=== PATIENT | female | born 1945 | race Caucasian/White ===

== ENCOUNTER 2018-10-25 10:21 | Observation (INO) | payer OTHER, SELFPAY ==
[2018-10-25] VITALS (7 sets, daily range): BP systolic 132–182; BP diastolic 68–96; PULSE 73–103; RESP 16–20; TEMP 36.6–36.9; O2SAT 95–99; BMI 19.4
--- NOTE | 2018-10-25 10:51 | ED_ITS ---
HPI - Extremity Injury (Lower) General Chief Complaint: Extremity Injury, Lower Stated Complaint: broken hip or crack in hip fell yesturday Time Seen by Provider: 10/25/18 10:24 Source: patient and family Mode of arrival: wheelchair Limitations: no limitations History of Present Illness HPI Narrative: 73-year-old female nonsmoker with history of hypertension presents with severe, intractable right hip pain with weight bearing or ambulation. Patient woke up in the middle the night and had a ground level mechanical fall 2 nights ago. She was seen and evaluated at the emergency department in Tuesday and had x-rays in CT, both of which were negative. Discharge instructions recommended further evaluation with MRI, the patient refused at that point time but given ongoing pain elected to come CS today. She denies any dizziness, weakness or lightheadedness. She states the fall was purely mechanical, as she was attempting to ambulate in the dark. She denies any numbness, tingling or weakness. MD complaint: hip injury Onset (ago): day(s) Type of Injury: blunt Place: home Severity: moderate Relieving factors: rest Exacerbating factors: weight bearing, movement and palpation Context: fall and direct blow Associated symptoms: unable to bear weight Other symptoms: none Related Data Home Medications Medication Instructions Recorded Confirmed TEARS ARTIFICIAL OPHTH - OPHTH PRN #0 06/22/09 (Lubritears / Tears Naturale) Allergies Allergy/AdvReac Type Severity Reaction Status Date / Time codeine Allergy Hives Verified 10/25/18 11:00 epinephrine AdvReac Agitated Verified 10/25/18 11:00 Review of Systems Constitutional Constitutional: Denies chills, Denies fatigue, Denies fever(s), Denies frequent falls, Denies lethargy and Denies weakness Eyes Eyes: Denies change in vision, Denies eye discharge, Denies irritation and Denies loss of vision ENT Ears, Nose, Mouth, and Throat: Denies change in voice, Denies dizziness, Denies neck pain, Denies sore throat and Denies throat swelling Cardiovascular Cardiovascular: Denies chest pain, Denies irregular heart rhythm, Denies lightheadedness, Denies palpitations, Denies dyspnea, Denies dyspnea on exertion and Denies orthopnea Respiratory Respiratory: Denies cough, Denies dyspnea, Denies dyspnea on exertion and Denies wheezing Gastrointestinal Gastrointestinal: Denies abdominal pain, Denies change in bowel habits, Denies diarrhea, Denies nausea and Denies vomiting Genitourinary Genitourinary: Denies hematuria, Denies flank pain, Denies urinary incontinence and Denies urinary urgency Musculoskeletal Musculoskeletal: Denies back pain, Reports limited range of motion, Denies muscle weakness, Denies neck pain, Denies numbness and Denies tingling Integumentary/Breasts Skin/Breast: Denies pruritus, Denies erythema, Denies rash and Denies wounds Neurologic Neurologic: Denies behavioral changes, Denies confusion, Denies dizziness, Denies frequent falls, Denies loss of vision, Denies numbness, Denies tingling and Denies weakness Psychiatric Psychiatric: Denies anxiety, Denies behavioral changes, Denies confusion, Denies depression, Denies homicidal ideation and Denies suicidal ideation Endocrine Endocrine: Denies fatigue, Denies flushing and Denies palpitations Hematologic/Lymphatic Hematologic/Lymphatic: Denies easy bruising Allergic/Immunologic Allergic/Immunologic: Denies urticaria, Denies throat swelling and Denies wheezing [facility] Medical History Allergic rhinitis (Acute) Hypertension (Acute) Irritable bowel syndrome (Acute) Unspecified nasal polyp (Acute) Surgical History History of appendectomy (Acute) History of cholecystectomy (Acute) History of tonsillectomy (Acute) Family History (Updated 10/25/18 @ 17:55 by Piedad Sequeira MD) Father Sick sinus syndrome Social History household members: none Smoking Status: Former smoker Family History Father Sick sinus syndrome Social History household members: none Smoking Status: Former smoker Exam Narrative Exam Narrative: GENERAL: [73] year old patient appears stated age. Well- nourished, well-developed patient, in mild distress. Obviously in significant pain, in her right hip and groin, requires multiple people to assist in ambulation from a seated position HEAD: Atraumatic. Normocephalic. EYES: Pupils equal round and reactive. Extraocular motions intact. No scleral i cterus. No injection or drainage. ENT: Nose without bleeding, purulent drainage. Throat without erythema, tonsillar hypertrophy or exudate. Airway patent. NECK: Trachea midline. Non tender CARDIOVASCULAR: Regular rate and rhythm without murmurs, gallops, or rubs. RESPIRATORY: Clear to auscultation. Breath sounds equal bilaterally. No wheezes, rales, or rhonchi. GASTROINTESTINAL: Abdomen soft, non-tender, nondistended. EXTREMITIES: No edema or joint tenderness. On palpation but significant pain in hip with ambulation BACK: Nontender without deformity or crepitance. No flank tenderness. NEURO: AOx3. SKIN: No rash or erythema of visible areas Initial Vital Signs Initial Vital Signs: Vital Signs Temperature 98.5 F 10/25/18 10:30 Pulse Rate 103 H 10/25/18 10:30 Respiratory Rate 20 10/25/18 10:30 Blood Pressure 182/96 H 10/25/18 10:30 Pulse Oximetry 97 10/25/18 10:30 Course Course Course Narrative: Records reviewed from [place], x-ray and CT both suggest no fracture noted Orders Ordered: ED Orders 10/25/18 11:20 Consult to Physical Therapy Evaluate & Treat 10/25/18 11:30 Basic Metabolic Panel Stat Complete Blood Count AUTO DIFF Stat Acetaminophen (Tylenol) 650 mg PO Q6HR PRN PRN Reason: As Needed for Fever/Mild Pain Hydrocodone Bitart/Acetaminophen (Birney 5/325) 1 tab PO Q4HR PRN PRN Reason: Pain, Moderate (4-6) Al Hydrox/Mg Hydrox/Simethicone (Maalox Plus) 30 ml PO Q6HR PRN PRN Reason: Dyspepsia Enoxaparin Sodium (Lovenox) 40 mg SUBCUT DAILY [facility] Losartan Potassium (Cozaar) 25 mg PO DAILY BELLO Magnesium Hydroxide (Milk Of Magnesia) 30 ml PO DAILY PRN PRN Reason: Constipation Ondansetron HCl (Zofran) 4 mg IV Q8HR PRN PRN Reason: Nausea And Vomiting Sennosides (Senna) 17.2 mg PO BEDTIME [facility] Vital Signs Vital signs: Vital Signs - 8 hr 10/25/18 11:30 10/25/18 12:30 Pulse Rate 98 H 92 H Respiratory Rate 16 16 Blood Pressure [Right Arm] 132/68 134/72 Pulse Oximetry 96 96 MDM - Extremity Injury (Lower) Lab Data Result diagrams: 10/25/18 11:30 10/25/18 11:30 Labs: Lab Results 10/25/18 10/25/18 Range/Units 11:30 11:30 WBC 6.5 (4.5-11.0) X10^3/uL RBC 4.36 (4.0-5.2) X10^6/uL Hgb 14.3 (12.0-16.0) g/dL Hct 41.2 (36-46) % MCV 94.5 (80-100) fL MCH 32.7 (26-34) PG MCHC 34.6 (30-36) % RDW 13.1 (11.6-14.8) % Plt Count 203 (150-400) X10^3/uL Neut % (Auto) 71.6 (50-75) % Lymph % (Auto) 18.6 L (25-40) % [place] % (Auto) 8.3 (3-14) % Eos % (Auto) 0.6 L (2-4) % Baso % (Auto) 0.9 (0-2) % Neut # (Auto) 4700 (1966-7378) /uL Lymph # (Auto) 1200 (7174-8685) /uL [place] # (Auto) 500 (0-900) /uL Eos # (Auto) 0 (0-450) /uL Baso # (Auto) 100 (0-100) /uL Sodium 137 (137-145) mmol/L Potassium 3.8 (3.4-5.1) mmol/L Chloride 97 L (98-107) mmol/L Carbon Dioxide 28 (22-32) mmol/L BUN 11 (7-17) mg/dL Creatinine 0.50 L (0.52-1.04) mg/dL Estimated GFR > 60.0 (>60) mL/min BUN/Creatinine Ratio 22.0 (6-22) Glucose 159 H (80-110) mg/dL Calcium 9.8 (8.4-10.2) mg/dL MDM Narrative Medical decision making narrative: Patient with mechanical, ground level fall and unremarkable images. Patient is in significant pain with any ambulation, physical therapy consultation obtained and noted in chart. They sure the op inion the patient is unable, and unsafe to go home at this point time. Patient has had questions answered to her apparent satisfaction and understands, and agrees with need for hospitalization for further evaluation and stabilization Discharge Plan Departure Patient Disposition: Admitted as Observation Clinical Impression: Groin pain Discharge Date/Time: 10/25/18 16:30 Admit Date/Time: 10/25/18 15:08 Admit Provider: Piedad Sequeira
[2018-10-25 11:46] LABS: Add Manual Diff / Slide Review NO; Basophils Absolute Auto 100 /uL (0-100); Basophils Percent Auto 0.9 % (0-2); Eosinophils Absolute Auto 0 /uL (0-450); Eosinophils Percent Auto 0.6 % (2-4); Hematocrit 41.2 % (36-46); Hemoglobin 14.3 g/dL (12.0-16.0); Lymphocytes Absolute Auto 1200 /uL (1100-4500); Lymphocytes Percent Auto 18.6 % (25-40); Mean Corpuscular HGB Conc 34.6 % (30-36); Mean Corpuscular Hemoglobin 32.7 PG (26-34); Mean Corpuscular Volume 94.5 fL (80-100); Monocytes Absolute Auto 500 /uL (0-900); Monocytes Percent Auto 8.3 % (3-14); Neutrophils Absolute Auto 4700 /uL (1500-7000); Neutrophils Percent Auto 71.6 % (50-75); Platelet Count 203 X10^3/uL (150-400); Red Blood Cell Count 4.36 X10^6/uL (4.0-5.2); Red Cell Distribution Width 13.1 % (11.6-14.8); White Blood Cell Count 6.5 X10^3/uL (4.5-11.0)
[2018-10-25 11:57] LABS: Blood Urea Nitrogen 11 mg/dL (7-17); Calcium 9.8 mg/dL (8.4-10.2); Carbon Dioxide 28 mmol/L (22-32); Chloride 97 mmol/L (98-107); Estimated Glomerular Filt Rate > 60.0 mL/min (>60); Glucose 159 mg/dL (80-110); HEMOLYSIS < 15 (0-50); Potassium 3.8 mmol/L (3.4-5.1); Sodium 137 mmol/L (137-145)
--- NOTE | 2018-10-25 15:15 | PT.IIE ---
Surgical History (Last Updated 10/25/18 @ 17:55 by Piedad Sequeira MD) History of appendectomy (Acute) History of cholecystectomy (Acute) History of tonsillectomy (Acute) Medical History (Last Updated 10/25/18 @ 17:55 by Piedad Sequeira MD) Allergic rhinitis (Acute) Hypertension (Acute) Irritable bowel syndrome (Acute) Unspecified nasal polyp (Acute) Physical Therapy Inpatient Evaluation/Re-Eval M1 PT/OT-IP Prior Functional Status Start: 10/25/18 17:31 Freq: NEEDED Status: Active Protocol: Document 10/25/18 15:15 AB (Rec: 10/25/18 18:00 AB [id number]) Medical Review Prior Functional Status Medical History Reviewed Yes Communication able to make needs known Mobility and Gait pt stated that she is modified independent with all mobilities and ambulation without AD but occasionally uses a SPC or a walking stick depending on her BPPV; stated that she also has a grocery trolley that she uses when needed for support Prior Functional Level (Other details) pt stated that she tripped and fell landing on her R hip during the night. initially was able to get back to bed but has difficulty getting up in the morning and has to call EMS and pt went to [facility]. stated that CT showed negative fracture but pt continues to have significant pain and [facility] stated to go to [facility] for MRI. Social History Household Members none Living Arrangements Apartment/Condo Number of Floors (Floors) One Floor Number of Stairs To Enter/Railing? 3 steps to enter with L rail ascending stated that she has a slope up to get into her condo pt lives at [facility] Home Environment High Toilet,Walk in Shower Home Equipment Bedside Commode,Shower Seat with Backrest,Hand Held Shower Employment Status Retired M2 PT-IP Current Condition Start: 10/25/18 17:31 Freq: NEEDED Status: Active Protocol: Document 10/25/18 15:15 AB (Rec: 10/25/18 18:00 AB [id number]) Physical Therapy Current Condition Current Condition Evaluation Date 10/25/18 Treatment Diagnosis R hip pain; difficulty in walking Onset Date 10/25/18 M3 PT-IP Subjective Start: 10/25/18 17:31 Freq: NEEDED Status: Active Protocol: Document 10/25/18 15:15 AB (Rec: 10/25/18 18:00 AB [id number]) Subjective Physical Therapy Visit Type Type Initial Evaluation Visit Start Time 15:15 Visit Stop Time 15:46 Total Visit Minutes 31 Number of BELLY PACKER Visits 0 Physical Therapy Visit Comments Patient Comments pt agreeable to do PT Therapy Pain Assessment Pain When Pain Assessed During Mobility Pain Present Pain Present Pain Reported Location Right Groin Intensity 6 Scale Used increases with increase weight bearing Pain Management Techniques Apply Cold,Modification of Treatment,Timing of Activity with Medications M4 PT-IP Mobility and Gait Start: 10/25/18 17:31 Freq: NEEDED Status: Active Protocol: Document 10/25/18 15:15 AB (Rec: 10/25/18 18:00 AB [id number]) PT-Bed Mobility Assessment Supine to Sit Supine to Sit Standby Assistance Sit to Supine Sit to Supine Standby Assistance Scooting Scooting to Edge of Bed Standby Assistance Scooting Up and Down in Bed Standby Assistance PT-Transfer Assessment Sit to and From Stand Sit to and from Stand Moderate Assistance,1 Person Assistance,Use of Upper Extremities Equipment Transfer Assistive Device Gait Belt,Front Wheeled Walker Orthotic/Prosthetic Devices or Brace: No Comments Mobility Comments pt stated that she does not have pain when she is not moving but has increase in pain when weight bearing. pt completed supine to sit SBA. completed sit to stand mod A and cues. pt is not using RLE for weight bearing. pt tried to put some weight and has ~ 2/10 pain and was able to ambulated in room ~ 8 ft using FWW mod A and cues with increase UE weight bearing and not putting much weight on RLE. pt attempted to put more weight and unable to tolerate with slight R knee buckling requiring mod A for support. pt has increase guarding during standing and ambulation . pt went back to bed. positioned in bed. call light and table within reach. informed nurse regarding pt's concerns and level of assistance. Gait Assessment Gait Gait Assistance Required: Moderate Assistance Distance (Feet) 8 Able to Maintain Weight Bearing Status Yes During Gait Assistive Devices Assistive Device Gait Belt,Front Wheeled Walker Orthotic/Prosthetic Devices or Brace: No Gait Deviations General Gait Pattern Antalgic,Decreased Stride Length,Decreased Feet Clearance,Step-to Gait Factors Limiting Gait Function Factors Limiting Gait Function Decreased Strength,Limited Range of Motion,Pain,Poor Balance Comments Gait Comments please refer to mobility section for details PT-Balance Assessment Sitting Balance and Reactions Static Sitting Balance Ability Good Dynamic Sitting Balance Ability Good Standing Balance and Reactions Static Standing Balance Ability Fair Dynamic Standing Balance Ability Poor Device Used FWW M5 PT-IP Objective Assessments Start: 10/25/18 17:31 Freq: NEEDED Status: Active Protocol: Document 10/25/18 15:15 AB (Rec: 10/25/18 18:00 AB [id number]) Orientation Orientation/Cognition Level of Alertness Alert Orientation Name,Place,Situation Language Function Ability No Deficits Noted Safety Awareness Understands Safety Issues Memory Description No Deficits Noted Gross Range of Motion Lower Extremity ROM Assessment Within Functional Limits Strength Lower Extremity Strength Assessment Right Impaired Hip 3-/5 with pain limiting movement Knee 3-/5 with pain limiting movement Coordination Assessment Gross Coordination Gross Coordination WNL Sensation Assessment Sensation Gross Sensation WNL Muscle Tone Muscle Tone WNL Yes M6 PT-IP Treatment Start: 10/25/18 17:31 Freq: NEEDED Status: Active Protocol: Document 10/25/18 15:15 AB (Rec: 10/25/18 18:00 AB [id number]) Physical Therapy Treatment Education Education Provided Safety M7 PT-IP Assessment and Plan Start: 10/25/18 17:31 Freq: NEEDED Status: Active Protocol: Document 10/25/18 15:15 AB (Rec: 10/25/18 18:00 AB [id number]) PT Summary Assessment and Plan Potential Rehabilitation Potential Fair Status of Condition at Evaluation Evolving Summary Impairments Pain,ROM,Strength,Balance,Bed Mobility,Transfers,Gait, Activity Tolerance Assessment Summary Received PT eval order from ER to determined safe D/C disposition for pt. Per Dr. Laguna, pt is unable to ambulate and CT was negative for fractures and PT eval requested for further assessment. Pt requiring mod A and cues with standing and ambulation. pt unable to tolerate much standing and weight bearing on R hip with c /o increase pain. pt presents with unsteady antalgic gait using FWW. pt does not have any assistance at home. pt is not safe to go home at this time. Further assessment required to determine safe d/c . pt's R hip pain limiting mobility at this time and requires further assessment and management of pain to determine safe d/c plan. Goals Bed Mobility Goal Standby Assistance Transfer Goal Standby Assistance,Front Wheeled Walker Gait Goal Standby Assistance,Front Wheel Walker Gait Distance 100 Other Goals up/down 3 steps L rail ascending SBA Days to Meet Goals 5 Frequency of Treatment Frequency Of Treatment Once a Day Treatment Plan Physical Therapy Treatment Plan Bed Mobility Training,Transfer Training,Gait Training, Therapeutic Exercise,Balance Retraining,Discharge Planning, Hot or Cold Pack,Neuromuscular Re-ed,Coordination Retraining ,Manual Therapy Recommendations To Nursing Amount of Assist Needed 1 Person Assist Discharge Recommendations PT Discharge Recommendations Home with 30/08 Assist,Home Health,SNF Rehab Equipment Needed for Home Before may need FWW Discharge
--- NOTE | 2018-10-25 16:58 | PC.NURSE ---
Pt arrived from [facility] ED @ 1635 Alert/oriented. VSS Stated minimal discomfort on the right hip. HL intact. Pt oriented to room and call system, Bed alarm on for pt safety.
--- NOTE | 2018-10-25 17:50 | PM.HP.1 ---
History of Present Illness History of Present Illness Date Patient Seen: 10/25/18 Chief complaint: broken hip or crack hip fell yesturday Narrative: The patient is a 73-year-old female with a history of hypertension, allergic rhinitis, irritable bowel syndrome who was in her usual state of health until yesterday at 4:00 a.m. when she attempted to go to the restroom and tripped over her sweat pants falling on her right hip. She reports since that time she has had pain when she attempts to bear weight on the right hip. The pain is a deep pain in the right groin. When she is at rest or not exerting weight she does not have any pain although it is a dull pain when it does occur. She was seen by her PCP on Tuesday, Vonnie Thayer. She had an x-ray of the hip which was negative for fracture. Patient also had a CT scan of the hip which was negative for fracture. Because she continues to have inability to ambulate without significant pain she was sent to [facility] for further evaluation and potential MRI study. Patient was seen by physical therapy in the emergency department. She was unable to ambulate independently. She is admitted to the hospital for further evaluation. Patient denies any headache blurred vision or double vision. She did not hit her head. She had no shortness of breath or chest pain. She denies any nausea vomiting or diarrhea. No fever chills, no weight loss. The patient lives alone in a condominium on [place]. She has 4 steps that she must step up on in order to enter her home. Patient is admitted to the hospital for further evaluation of continued right groin pain following a fall. Patient History Medical History (Updated 10/25/18 @ 17:55 by Piedad Sequeira MD) Allergic rhinitis (Acute) Hypertension (Acute) Irritable bowel syndrome (Acute) Unspecified nasal polyp (Acute) Surgical History (Updated 10/25/18 @ 17:55 by Piedad Sequeira MD) History of appendectomy (Acute) History of cholecystectomy (Acute) History of tonsillectomy (Acute) Family History (Updated 10/25/18 @ 17:55 by Piedad Sequeira MD) Father Sick sinus syndrome Social History household members: none Smoking Status: Former smoker Family & Social History Family History (Updated 10/25/18 @ 17:55 by Piedad Sequeira MD) Father Sick sinus syndrome Social History: household members none Prior Living Arrangements Apartment/Condo Safety & Behavioral: Feels Safe in Current Yes Environment Been Physically Hurt or No Threatened By a Person Suicidal Ideation Description None Suicide Plan Description No Plan Tobacco & Substance use: Smoking Status Former smoker alcohol intake frequency 0-2 drinks per day Substance Use Type does not use Meds Home Medications and Allergies Home Medications Medication Instructions Recorded Confirmed Type TEARS ARTIFICIAL OPHTH - OPHTH PRN #0 06/22/09 History (Lubritears / Tears Naturale) Allergies Allergy/AdvReac Type Severity Reaction Status Date / Time codeine Allergy Hives Verified 10/25/18 11:00 epinephrine AdvReac Agitated Verified 10/25/18 11:00 Review of Systems Review of Systems ROS Unobtainable: All systems reviewed & are unremarkable except as noted in HPI and below Exam Vital Signs (past 8 hours): - 10/25/18 10:30 10/25/18 11:30 10/25/18 12:30 Temperature 98.5 F Pulse Rate 103 H 98 H 92 H Respiratory Rate 20 16 16 Blood Pressure 182/96 H Blood Pressure [Right Arm] 132/68 134/72 Pulse Oximetry 97 96 96 10/25/18 16:29 10/25/18 16:35 10/25/18 16:57 Temperature 98.2 F Pulse Rate 82 83 Respiratory Rate 20 Blood Pressure 155/87 H Blood Pressure [Right Arm] 132/80 Pulse Oximetry 95 99 Oxygen Delivery Method Room Air Oxygen Flow Rate 0 Narrative Exam Narrative: Pleasant elderly female resting comfortably in no obvious distress HEENT: Normocephalic atraumatic, extraocular muscles are intact, oropharynx is clear, neck is supple, there is no thyromegaly, no adenopathy, no JVD Lungs: Clear to auscultation Cardiac exam: Regular rate and rhythm normal S1-S2 with a 2/6 systolic ejection murmur Abdomen: Soft nontender nondistended without hepatosplenomegaly Extremities: Right groin tender with straight leg elevation, strength is symmetric and equal in the lower extremity she has normal bulk and tone, no edema Neuro exam cranial nerves 2-12 are intact, motor upper and lower extremities intact sensation grossly intact, reflexes brisk and equal, gait is not assessed Psychiatric exam: Patient is awake alert and appropriate, she has no confusion, no hallucinations, no delusions, there are no tics noted Skin exam: No obvious lesion Objective Labs Result Diagrams: 10/25/18 11:30 10/25/18 11:30 Labs: Laboratory Results - last 24 hr 10/25/18 10/25/18 11:30 11:30 WBC 6.5 RBC 4.36 Hgb 14.3 Hct 41.2 MCV 94.5 MCH 32.7 MCHC 34.6 RDW 13.1 Plt Count 203 Neut % (Auto) 71.6 Lymph % (Auto) 18.6 L [place] % (Auto) 8.3 Eos % (Auto) 0.6 L Baso % (Auto) 0.9 Neut # (Auto) 4700 Lymph # (Auto) 1200 [place] # (Auto) 500 Eos # (Auto) 0 Baso # (Auto) 100 Sodium 137 Potassium 3.8 Chloride 97 L Carbon Dioxide 28 BUN 11 Creatinine 0.50 L Estimated GFR > 60.0 BUN/Creatinine Ratio 22.0 Glucose 159 H Calcium 9.8 Assessment & Plan Assessment & Plan narrative: 1. 73-year-old female status post ground level fall now with persistent right groin pain. She has had an extensive workup to include right hip x-ray, right hip CT, which have been unrevealing. The patient is admitted to the hospital for an MRI of the hip to rule out a definitive diagnosis or an occult fracture. Her pain is well controlled at this time. Will obtain MRI, pending results will obtain PT OT consultation to determine whether she will be able to return home. 2. Hypertension, continue losartan 25 mg daily 3. Irritable bowel syndrome, chronic not active 4. Allergic rhinitis, nonactive Plan patient will be seen in observation status. Will obtain an MRI study in the morning. Start her on Tylenol, DVT prophylaxis, anticipate PT and OT consultation. Patient is a full code and will note that in her record accordingly. Quality VTE Deep Vein Thrombosis/Pulmonary Embolism Present on Admission: No
--- NOTE | 2018-10-25 18:01 | DI.MRI.S_ITS ---
PROCEDURE: MR HIP RT WO/W CON INDICATIONS: right groin pain following fall TECHNIQUE: Noncontrast coronal T1 spin echo and STIR through the bony pelvis. Coronal and axial T2 fast spin echo with fat saturation, axial T1 spin echo with fat saturation, sagittal T1 spin echo, and oblique axial T2 fast spin echo with fat saturation through the hip. Post-contrast axial, coronal, and sagittal spin echo with fat saturation through the hip. COMPARISON: None. FINDINGS: Image quality: Excellent. Bones and joints: There is edema and signal changes in keeping with nondisplaced fracture involving the high right superior pubic ramus/anterior column. No definite displacement is seen although recommend continued surveillance with radiographs. Right hip degeneration is present with associated subchondral sclerosis and spurring. No avascular necrosis of the femoral heads. The visualized lower lumbar spine appears normally aligned. Tendons and ligaments: There is gluteus medius insertional tendinopathy/partial tear. Gluteus minimus appears grossly intact. The nearby proximal iliotibial band also appears intact. The iliopsoas tendon appears intact, without adjacent bursal fluid collections or evidence for impingement syndrome. The origin of the hamstring tendon is intact at the ischial tuberosity, as well as the associated sacrotuberous ligament. The straight and reflected heads of the rectus femoris muscle origin appear intact, as well as the conjoint tendon. The ligamentum teres appears intact where visualized. Labrum and cartilage: Circumferential presumed chronic/degenerative labral tear. The alpha angle of the femur is within normal limits at less than 55 degrees. Soft tissues: There is diffuse muscle edema involving the right hip adductor compartment, for example image 30 series 7 although only partly visualized. This suggests acute muscle strain. IMPRESSION: Nondisplaced fracture involving the high right superior pubic ramus/anterior column. Recommend dedicated radiographs. Acute strain involving the right hip adductor musculature. Age-indeterminate insertional right gluteus medius tendinopathy. 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 Findings and recommendations were personally telephoned and discussed with Dr. Sequeira at 1136 hours 10/26/18. Dictated by: Roberto Hagen M.D. on 10/26/2018 at 11:08 Approved by: Roberto Hagen M.D. on 10/26/2018 at 11:37
[2018-10-25] MEDS: HYDROCODONE/ACET 5/325 TABLET 1 TAB PO (22:00)
[2018-10-25] MEDS: SENNOSIDES 8.6 MG TABLET 17.2 MG PO (22:00)
[2018-10-26] VITALS (9 sets, daily range): BP systolic 126–163; BP diastolic 65–93; PULSE 67–99; RESP 16–18; TEMP 36.5–37.2; O2SAT 91–99
--- NOTE | 2018-10-26 02:30 | PC.NURSE ---
Water Chemist Note: 0100: Awake, assisted up to bedside commode: pt able to stand on lt leg and pivot to bedside commode. Vital signs stable. IV in place in rt forearm. Pt denies pain at this time.
[2018-10-26] MEDS: ENOXAPARIN 40 MG/0.4 ML SYRINGE SUBCUT (09:17)
[2018-10-26] MEDS: LOSARTAN 25 MG TABLET PO (09:18)
--- NOTE | 2018-10-26 10:31 | PC.NURSE ---
Addendum entered by Nikhil Mcguire R.N. 10/26/18 11:11: PATIENT BACK TO BED. Original Note: DAY SHIFT NOTE: 1P ASSIST TO PIVOT TRANSF TO COMMODE W/ WALKER. DOES NOT BEAR WT ON RLE DUE TO PAIN W/ SAME. DECLINES PAIN MEDS INCLUDING TYLENOL. IT ONLY HURTS IF I BEAR WT ON IT. OFF OF UNIT FOR MRI AT THIS TIME.
--- NOTE | 2018-10-26 13:00 | OT.IP.TRT ---
Occupational Therapy Treatment Note M3 OT- IP Subjective and Pain Start: 10/26/18 13:02 Freq: Status: Active Protocol: Document 10/26/18 13:03 PJM (Rec: 10/26/18 13:04 PJM [id number]) OT- Subjective Occupational Therapy Visit Type Type Administrative Note Visit Start Time 13:00 Notes OT referral received. MRI showed pelvic fx and will need surgery per Dr Sequeira. Will await post op re-order and initiate OT evaluation as medical status permits.
--- NOTE | 2018-10-26 13:13 | PT.IPTN ---
Physical Therapy Treatment Note M2 PT-IP Current Condition Start: 10/25/18 17:31 Freq: NEEDED Status: Active Protocol: Document 10/25/18 15:15 AB (Rec: 10/25/18 18:00 AB [id number]) Physical Therapy Current Condition Current Condition Evaluation Date 10/25/18 Treatment Diagnosis R hip pain; difficulty in walking Onset Date 10/25/18 M3 PT-IP Subjective Start: 10/25/18 17:31 Freq: NEEDED Status: Active Protocol: Document 10/26/18 13:12 AB (Rec: 10/26/18 13:13 AB [id number]) Subjective Physical Therapy Visit Type Notes Spoke with Dr. Sequeira and stated that pt has a hip fracture and has to go for surgery. d/ c PT at this time and new PT eval will be ordered after surgery. Document 10/26/18 13:12 AB (Rec: 10/26/18 13:13 AB [id number]) PT Summary Assessment and Plan Frequency of Treatment Frequency Of Treatment Discharge
--- NOTE | 2018-10-26 15:46 | CM.DPNOTE ---
Patient is a 73 year old female who was admitted on 10/25/18 for fall. Pt has [facility] for insurance and her PCP is Dr. Vonnie Coronel. EMR was reviewed. Per MD, waiting for MRI to determine if pt has fx and if surgery needed. Per PT/OT, eval held today as pt's MRI results showed fx and pt to have surgical procedure. Due to triage needs and surgery pending, no bedside assessment completed. Plan: SW to follow after surgery and PT/OT eval and recommendations to determine d/c planning needs. ERAN Kline
--- NOTE | 2018-10-26 17:10 | PM.PN.1 ---
Subjective Subjective Date Patient Seen: 10/26/18 Interval history: The patient is a 73-year-old female who was admitted to the hospital yesterday following a fall. She has had continued right groin pain. She was seen by her PCP and underwent an x-ray of the hip which was negative. She also had a CT of the hip which was negative. The patient continues to have significant pain with ambulation. She also reports pain when rolling over. Patient had an MRI today. This showed a right anterior acetabular suprapubic fracture. This is nondisplaced. Patient also has muscle strain as identified around the right hip as well. Exam Vital Signs (past 8 hours): - 10/26/18 15:40 Temperature 98.1 F Pulse Rate 77 Respiratory Rate 18 Blood Pressure 139/79 Pulse Oximetry 97 Oxygen Delivery Method Room Air Oxygen Flow Rate 0 Narrative Exam Narrative: Pleasant female in no obvious distress Lungs: Clear to auscultation Cardiac exam: Regular rate and rhythm normal S1-S2 Abdomen: Soft nontender nondistended Extremities: No edema, patient has an ice pack on the right coring. Objective Labs Result Diagrams: 10/25/18 11:30 10/25/18 11:30 Assessment & Plan Assessment & Plan narrative: 1. Right acetabular suprapubic nondisplaced fracture, nontraumatic following a fall. Suspect this is secondary to underlying osteoporosis. Orthopedic surgery consult will be obtained. Anticipate definitive surgical repair. For now the patient will continue as needed pain. Will resume PT OT following her surgical repair. 2. Hypertension, continue Cozaar 3. Anticipate the patient may require rehabilitation postoperative for ongoing rehabilitation. Quality VTE Deep Vein Thrombosis/Pulmonary Embolism Present on Admission: No
--- NOTE | 2018-10-26 20:50 | PM.CN ---
History of Present Illness Consult details Date Patient Seen: 10/26/18 Time Patient Seen: 20:50 Chief complaint: broken hip or crack hip fell yesturday Reason for consult: Right hip pain Requesting provider: Piedad Sequeira Narrative: Patient is a 73-year-old woman who was admitted to the hospital with right groin pain. She reports that she fell 2 days ago on Tuesday. She was having quite a bit of pain but initial x-rays were apparently negative. An MRI scan in the hospital revealed a nondisplaced fracture of the right superior pubic ramus just adjacent to the acetabulum. She denies having any other problems with the hip. She did not have any other injuries during her fall. No loss of consciousness. [facility] Medical History Allergic rhinitis (Acute) Hypertension (Acute) Irritable bowel syndrome (Acute) Unspecified nasal polyp (Acute) Surgical History History of appendectomy (Acute) History of cholecystectomy (Acute) History of tonsillectomy (Acute) Family History Father Sick sinus syndrome Social History household members: none Smoking Status: Former smoker Family History Father Sick sinus syndrome Social History household members: none Smoking Status: Former smoker Meds Home Medications and Allergies Home Medications Medication Instructions Recorded Confirmed Type TEARS ARTIFICIAL OPHTH - OPHTH PRN #0 06/22/09 History (Lubritears / Tears Naturale) Allergies Allergy/AdvReac Type Severity Reaction Status Date / Time codeine Allergy Hives Verified 10/25/18 11:00 epinephrine AdvReac Agitated Verified 10/25/18 11:00 Review of Systems Review of Systems ROS Unobtainable: All systems reviewed & are unremarkable except as noted in HPI and below Exam Vital Signs (past 8 hours): - 10/26/18 15:00 10/26/18 15:40 09/19/19 20:00 Temperature 98.1 F 99.0 F Pulse Rate 77 77 Respiratory Rate 18 18 Blood Pressure 139/79 155/90 H Pulse Oximetry 98 97 Oxygen Delivery Method Room Air Oxygen Flow Rate 0 Const General: healthy appearing and comfortable Nutritional Appearance: well nourished Orientation: alert and oriented x3 Extrem Other: There is significant tenderness in the right groin area around the superior pubic ramus. Hip range of motion is just mildly uncomfortable and relatively full passively. Motor strength is rated at 5/5 throughout the extremities. There is a slight bruise over the lateral right hip but minimal tenderness. No evidence of any other trauma to any of the extremities. Extremities are warm and well perfused. Sensation is intact to light touch throughout the extremities. Objective Labs Result Diagrams: 10/25/18 11:30 10/25/18 11:30 Assessment & Plan Assessment & Plan narrative: Nondisplaced superior pubic ramus fracture. The MRI scan was reviewed and showed a nondisplaced fracture of the superior pubic ramus just adjacent to the right acetabulum which is consistent with her pain. I discussed the nature of this condition and further treatment options with the patient. This fracture can be treated non operatively. She may be full weight-bearing on the left side which should be relatively comfortable. She may progress weight-bearing as tolerated on the right side. This might initially be fairly painful so she may just be toe-touch weight-bearing. However, as her symptoms improve she can progress more and more weight onto the right side. She will most likely need to be admitted to a nursing home facility as she lives alone. Time Spent With Patient Time with patient: less than 15 minutes
[2018-10-26] MEDS: SENNOSIDES 8.6 MG TABLET 17.2 MG PO (22:33)
[2018-10-26] MEDS: ACETAMINOPHEN 325 MG TABLET 650 MG PO (23:22)
[2018-10-27] VITALS (7 sets, daily range): BP systolic 126–151; BP diastolic 77–89; PULSE 71–85; RESP 16–18; TEMP 36.5–37; O2SAT 97–98
[2018-10-27] MEDS: LOSARTAN 25 MG TABLET PO (08:58)
[2018-10-27] MEDS: ENOXAPARIN 40 MG/0.4 ML SYRINGE SUBCUT (08:58)
--- NOTE | 2018-10-27 08:59 | PM.PN.1 ---
Subjective Subjective Date Patient Seen: 10/27/18 Time Patient Seen: 08:59 Interval history: Patient is a 73-year-old woman who was admitted to the hospital with right groin pain after she fell on Tuesday. An MRI scan in the hospital revealed a nondisplaced fracture of the right superior pubic ramus just adjacent to the acetabulum. She was evaluated by Dr. Suarez today and will be treated non operatively. She is able to progress to weight-bearing as tolerated. She may need to be toe-touch weight-bearing at first due to pain. Patient's pain is well controlled with Tylenol. Patient will need detention facility for continued care. Exam Vital Signs (past 8 hours): - 10/27/18 05:25 10/27/18 08:00 Temperature 98.0 F 97.7 F Pulse Rate 71 78 Respiratory Rate 18 18 Blood Pressure 126/83 151/77 H Pulse Oximetry 97 97 Oxygen Delivery Method Room Air Oxygen Flow Rate 0 Narrative Exam Narrative: Patient is sitting up in bed in no acute distress. She is alert and oriented x3. Calves are soft, compressible, nontender bilaterally. Pulses are symmetrical. Motor strength is rated at 5/5 throughout the extremities. There is a slight bruise over the lateral right hip but minimal tenderness. No open wounds or lesions. Sensation is intact to light touch throughout the extremities. Objective Labs Result Diagrams: 10/25/18 11:30 10/25/18 11:30 Assessment & Plan Assessment and plan (1) Pubic ramus fracture: Problem details: This fracture will be treated non-operatively. We will continue Dr. Suarez plan. She may be full weight-bearing on the left side which should be relatively comfortable. She may progress weight-bearing as tolerated on the right side. This might initially be fairly painful so she may just be toe-touch weight-bearing. However, as her symptoms improve she can progress more and more weight onto the right side. She will most likely need to be admitted to a detention facility as she lives alone. Current visit: Yes Status: Acute Quality VTE Deep Vein Thrombosis/Pulmonary Embolism Present on Admission: No
--- NOTE | 2018-10-27 11:08 | PT.IIE ---
Current Diagnoses Other specified fracture of unspecified pubis, initial encounter for closed fracture (10/25/18) Surgical History (Last Reviewed 10/26/18 @ 20:51 by Ty Suarez MD) History of appendectomy (Acute) History of cholecystectomy (Acute) History of tonsillectomy (Acute) Medical History (Last Reviewed 10/26/18 @ 20:51 by Ty Suarez MD) Allergic rhinitis (Acute) Hypertension (Acute) Irritable bowel syndrome (Acute) Unspecified nasal polyp (Acute) Physical Therapy Inpatient Evaluation/Re-Eval M1 PT/OT-IP Prior Functional Status Start: 10/25/18 17:31 Freq: NEEDED Status: Active Protocol: Document 10/27/18 12:25 [facility] (Rec: 10/27/18 13:07 [facility] [id number]) Medical Review Prior Functional Status Medical History Reviewed Yes Communication able to make needs known Mobility and Gait pt stated that she is modified independent with all mobilities and ambulation without AD but occasionally uses a SPC or a walking stick depending on her BPPV; stated that she also has a grocery trolley that she uses when needed for support Activities of Daily Living and IADL's Pt staets prior completely independent with all ADl and IADl needs. Prior Functional Level (Other details) pt stated that she tripped and fell landing on her R hip during the night. initially was able to get back to bed but has difficulty getting up in the morning and has to call EMS and pt went to [facility]. stated that CT showed negative fracture but pt continues to have significant pain and [facility] stated to go to [facility] for MRI. Pt states does not drive and gets a cab if needed. pt staets has 4O ft slope to walk down to the road to get a cab . Social History Household Members none Living Arrangements Apartment/Condo Number of Floors (Floors) One Floor Number of Stairs To Enter/Railing? 3 steps to enter with L rail ascending stated that she has a slope up to get into her condo pt lives at [facility] Environment High Toilet,Walk in Shower Home Equipment Bedside Commode,Shower Seat with Backrest,Hand Held Shower Employment Status Retired Additional Social History Comment Pt states in guest bathroom can use edge of tub to help stand. Pt also lookig into inistalling grab bars for the shower. M2 PT-IP Current Condition Start: 10/25/18 17:31 Freq: NEEDED Status: Active Protocol: Document 10/27/18 11:08 AB (Rec: 10/27/18 15:29 AB [id number]) Physical Therapy Current Condition Current Condition Evaluation Date 10/27/18 Treatment Diagnosis pubic ramus fx; difficulty in walking Onset Date 10/25/18 Weight Bearing Status Weight Bearing Status Weight Bear as Tolerated M3 PT-IP Subjective Start: 10/25/18 17:31 Freq: NEEDED Status: Active Protocol: Document 10/27/18 11:08 AB (Rec: 10/27/18 15:29 AB [id number]) Subjective Physical Therapy Visit Type Type Initial Evaluation Visit Start Time 11:08 Visit Stop Time 11:31 Total Visit Minutes 23 Number of PERSONAL CLOTHING LAUNDRY AIDE Visits 0 Physical Therapy Visit Comments Patient Comments pt agreeable to do PT Therapy Pain Assessment Pain Present Pain Present Denied Pain M4 PT-IP Mobility and Gait Start: 10/25/18 17:31 Freq: NEEDED Status: Active Protocol: Document 10/27/18 11:08 AB (Rec: 10/27/18 15:29 AB [id number]) PT-Bed Mobility Assessment Supine to Sit Supine to Sit Standby Assistance Sit to Supine Sit to Supine Standby Assistance PT-Transfer Assessment Sit to and From Stand Sit to and from Stand Minimal Assistance,1 Person Assistance,Use of Upper Extremities Equipment Transfer Assistive Device Gait Belt,Front Wheeled Walker Orthotic/Prosthetic Devices or Brace: No Transfers Transfer Destination Chair Transfer Technique pt ambulated using FWW Transfer Ability Level of Assist Minimal Assistance,1 Person Assistance,Use of Upper Extremities Comments Mobility Comments pt completed sit to stand from EOB min A and cues. required 2 attempts to successfully complete. pt ambulated from EOB to the chair using FWW min A and max cues. presents with antalgic gait. ambulate is very guarded and required increase time to complete. pt also has heavy use of BUE for support during ambulation with c/o arms being tired and needs a standing rest break. Gait Assessment Gait Gait Assistance Required: Minimum Assistance Distance (Feet) 20 Able to Maintain Weight Bearing Status Yes During Gait Assistive Devices Assistive Device Gait Belt,Front Wheeled Walker Orthotic/Prosthetic Devices or Brace: No Gait Deviations General Gait Pattern Antalgic,Decreased Stride Length,Decreased Feet Clearance,Narrow Based Gait, Step-to Gait Factors Limiting Gait Function Factors Limiting Gait Function Decreased Activity Tolerance, Decreased Strength,Limited Range of Motion,Pain,Poor Balance,Poor Safety Awareness Comments Gait Comments please refer to mobility section for details PT-Balance Assessment Sitting Balance and Reactions Static Sitting Balance Ability Good Dynamic Sitting Balance Ability Good Standing Balance and Reactions Static Standing Balance Ability Fair Dynamic Standing Balance Ability Fair Device Used FWW M5 PT-IP Objective Assessments Start: 10/25/18 17:31 Freq: NEEDED Status: Active Protocol: Document 10/27/18 11:08 AB (Rec: 10/27/18 15:29 AB [id number]) Orientation Orientation/Cognition Level of Alertness Alert Orientation Name,Age,Birthday,Month,Date, Year,Day of Week,Place, Situation Safety Awareness Decreased Safety Awareness Gross Range of Motion Lower Extremity ROM Assessment Within Functional Limits Strength Lower Extremity Strength Assessment Right Impaired Hip 3+/5 Knee 3+/5 Coordination Assessment Gross Coordination Gross Coordination WNL Sensation Assessment Sensation Gross Sensation WNL Muscle Tone Muscle Tone WNL Yes M6 PT-IP Treatment Start: 10/25/18 17:31 Freq: NEEDED Status: Active Protocol: Document 10/27/18 11:08 AB (Rec: 10/27/18 15:29 AB [id number]) Physical Therapy Treatment Education Education Provided Precautions,Weight Bearing Status,Safety M7 PT-IP Assessment and Plan Start: 10/25/18 17:31 Freq: NEEDED Status: Active Protocol: Document 10/27/18 11:08 AB (Rec: 10/27/18 15:29 AB [id number]) PT Summary Assessment and Plan Potential Rehabilitation Potential Good Status of Condition at Evaluation Evolving Summary Impairments Pain,ROM,Strength,Balance, Coordination,Sensation,Tone, Cognition,Bed Mobility, Transfers,Gait,Activity Tolerance Assessment Summary pt requiring min A with mobility and requires increase time to complete tasks. required 2 attempts with sit to stand before successfully completing. pt presents with heavy use of BUE during standing and ambulation with c /o UE tiredness midway through ambulation requiring stand rest break. pt presents with unsteady antalgic gait and cues given for posture and safety. pt unable to tolerate further ambulation this morning and will attempt next tx session. pt lives alone and has 3 steps to enter with L rail and at this time is not appropriate to do steps. pt needs to be more independent than current level to be able to d/c home safe as pt lives alone. Goals Bed Mobility Goal Independent Transfer Goal Independent,Front Wheeled Walker Gait Goal Independent,Front Wheel Walker Gait Distance 150 Other Goals up/down 3 steps L rail ascending SBA Days to Meet Goals 10 Frequency of Treatment Frequency Of Treatment Twice a Day Treatment Plan Physical Therapy Treatment Plan Bed Mobility Training,Transfer Training,Gait Training, Therapeutic Exercise,Balance Retraining,Discharge Planning, Hot or Cold Pack,Neuromuscular Re-ed,Coordination Retraining ,Manual Therapy Other Recommendations and Next Treatment ambulation, stair climbing Focus when appropriate Recommendations To Nursing Amount of Assist Needed 1 Person Assist Discharge Recommendations PT Discharge Recommendations SNF Rehab Equipment Needed for Home Before FWW Discharge
--- NOTE | 2018-10-27 12:46 | PC.NURSE ---
Pt is a one person assist to get up to commode, she can not toe touch weight bear. Tolerating meals well. Pt had an ortho consult and she will not be going to surgery. Denies pain and refused tylenol. Pt is content at this time.
--- NOTE | 2018-10-27 13:07 | OT.IP.EVAL ---
Current Diagnoses Other specified fracture of unspecified pubis, initial encounter for closed fracture (10/25/18) Past Medical History (Last Reviewed 10/26/18 @ 20:51 by Ty Suarez MD) Allergic rhinitis (Acute) Hypertension (Acute) Irritable bowel syndrome (Acute) Unspecified nasal polyp (Acute) Surgical History (Last Reviewed 10/26/18 @ 20:51 by Ty Suarez MD) History of appendectomy (Acute) History of cholecystectomy (Acute) History of tonsillectomy (Acute) Occupational Therapy Inpatient Evaluation/Re-Eval M1 PT/OT-IP Prior Functional Status Start: 10/25/18 17:31 Freq: NEEDED Status: Active Protocol: Document 10/27/18 12:25 [facility] (Rec: 10/27/18 13:07 [facility] [id number]) Medical Review Prior Functional Status Medical History Reviewed Yes Communication able to make needs known Mobility and Gait pt stated that she is modified independent with all mobilities and ambulation without AD but occasionally uses a SPC or a walking stick depending on her BPPV; stated that she also has a grocery trolley that she uses when needed for support Activities of Daily Living and IADL's Pt states prior completely independent with all ADl and IADl needs. Prior Functional Level (Other details) pt stated that she tripped and fell landing on her R hip during the night. initially was able to get back to bed but has difficulty getting up in the morning and has to call EMS and [facility]. stated that CT showed negative fracture but pt continues to have significant pain and [facility] stated to go to [facility] for MRI. Pt states does not drive and gets a cab if needed. pt states has 4O ft slope to walk down to the road to get a cab . Social History Household Members none Living Arrangements Apartment/Condo Number of Floors (Floors) One Floor Number of Stairs To Enter/Railing? 3 steps to enter with L rail ascending stated that she has a slope up to get into her condo pt lives at [place] Home Environment High Toilet,Walk in Shower Home Equipment Bedside Commode,Shower Seat with Backrest,Hand Held Shower Employment Status Retired Additional Social History Comment Pt states in guest bathroom can use edge of tub to help stand. Pt also looking into installing grab bars for the shower. M2 OT-IP Current Condition Start: 10/26/18 13:02 Freq: Status: Active Protocol: Document 10/27/18 12:25 [facility] (Rec: 10/27/18 13:07 [facility] [id number]) Occupational Therapy Current Condition Current Condition Evaluation Date 10/27/18 Treatment Diagnosis S/p fall -Non displaced right supeiror pubic ramus fx. Diagnosis Onset Date 10/25/18 Post Operative Precautions Other Precautions Per consult from Dr. Suarez, initially pt may only be able to tolerate toe touch weight bearing and then progress to weight bearing as tolerated. Weight Bearing Status Weight Bearing Status Weight Bear as Tolerated M3 OT- IP Subjective and Pain Start: 10/26/18 13:02 Freq: Status: Active Protocol: Document 10/27/18 12:25 [facility] (Rec: 10/27/18 13:07 [facility] [id number]) OT- Subjective Occupational Therapy Visit Type Type Initial Evaluation Visit Start Time 11:11 Visit Stop Time 11:55 Total Visit Minutes 44 Occupational Therapy Visit Comments Patient Comments Pt agreeable to get up for OT eval . Patient/Caregiver Goals Pt wanting to go to skilled rehab prior to going home. OT Pain Assessment Pain When Pain Assessed During Mobility Pain Present Pain Present Denied Pain M4 OT- IP ADL's Start: 10/26/18 13:02 Freq: Status: Active Protocol: Document 10/27/18 12:25 [facility] (Rec: 10/27/18 13:07 [facility] [id number]) OT RDE-[id number]-[id number] General Evaluation Self-Feeding Ability Independent OT ADL-Grooming General Evaluation Grooming Ability Standby Assistance Areas Needing Assistance Retrieving/Set-up of Grooming Items Comments OT Grooming Comments Pt able to stand at sink with FWW and do all grooming independently after set-up. OT ADL-Oral Care General Eval Oral Care Ability Independent OT ADL-Dressing General Eval Lower Body Dressing Ability Standby Assistance Areas Needing Assistance Underpants/Brief,Socks Comments OT Dressing Comments Pt able to hayder /doff socks without adpative equipment while sitting independlt. Ptalso able to thread her legs into the pants and stand to FWW and with close SBA able to hayder pahts over her hips while letting go with both hands from the wwalker. OT ADL-Toileting Comments OT Toileting Comments Pt not having to use the toilet at this time. OT ADL-Bathing Comments OT Bathing Comments Pt too tired to do today and requesting to try with OT tomorrow AM. M5 OT- IP IADL's Start: 10/26/18 13:02 Freq: Status: Active Protocol: Document 10/27/18 12:25 [facility] (Rec: 10/27/18 13:07 [facility] [id number]) OT-Instrumental Activities of Daily Living Home Safety Awareness Ability to Problem Solve Emergency Able to Problem Solve Situations Home Safety Comments Pt able to answer all home safety situation with 100% accuracy. Medication Management Medication Management No Deficits Identified Money Management Money Management No Deficits Identified M6 OT- IP Functional Cognition Start: 10/26/18 13:02 Freq: Status: Active Protocol: Document 10/27/18 12:25 [facility] (Rec: 10/27/18 13:07 [facility] [id number]) Cognitive Factors Limiting Selfcare Function Cognitive Ability Level of Alertness Alert Patient Orientation Name,Age,Birthday,Month,Date, Year,Day of Week,Place, Situation Attention Span Ability Capable of Focused Attention, Capable of Sustained Attention Ability to Follow Commands Able to Follow One Step Commands Memory Description No Deficits Noted Safety Awareness Underestimates Need for Assistance Problem Solving Ability Needs Assist to Identify Solutions Cognitive Comments Cognitive Assessment Comments Pt needing vc for FWW safety as not used to using a walker. VC to safety awareness of how to come to stand and sitting , hand placement, how much weight to put through right leg. OT- Vision and Hearing OT- Hearing Assessment OT- Hearing Assessment WFL OT- Vision Assessment Visual Acuity Glasses All The Time Vision Assessment Comments Pt does not have her glasses but able to read the clock accurately. M7 OT- IP Mobility and Balance Start: 10/26/18 13:02 Freq: Status: Active Protocol: Document 10/27/18 12:25 [facility] (Rec: 10/27/18 13:07 [facility] [id number]) OT- Bed Mobility Assessment Rolling Type of Rolling Roll to Left Supine to Sit Supine to Sit Assist Standby Assistance,1 Person Assistance OT-Transfer Assessment Sit to and From Stand Sit to and from Stand Contact Guard Assistance, Minimal Assistance Transfers Transfer Ability Standby Assistance,Contact Guard Assistance Technique Transfer Destination Bed,Chair Devices Transfer Assistive Devices Gait Belt,Front Wheeled Walker Comments Mobility Comments Pt initially VIOLET to help to stand as trying to stand up mainly on the left leg as trying not to put weight through RLE and unbalanced. After education to try to place some weight on the right side even just for balance improved to CGA and at the lianne of the session SBA to stand. OT- Balance Assessment Sitting Balance and Reactions Static Sitting Balance Ability Normal Dynamic Sitting Balance Ability Normal Standing Balance and Reactions Static Standing Balance Ability Good M8 OT- IP Objective Assessments Start: 10/26/18 13:02 Freq: Status: Active Protocol: Document 10/27/18 12:25 [facility] (Rec: 10/27/18 13:07 [facility] [id number]) OT Gross Range of Motion Upper Extremity Range of Motion Assessment Within Functional Limits OT Strength Upper Extremity Strength Assessment Within Functional Limits M9 OT- IP Assessment and Plan Start: 10/26/18 13:02 Freq: Status: Active Protocol: Document 10/27/18 12:25 [facility] (Rec: 10/27/18 13:07 [facility] [id number]) OT Summary Assessment and Plan Potential Rehabilitation Potential Excellent Analytic Complexity at Evaluation Low Summary OT Impairments Balance,Functional Mobility, Dressing,Toileting,Bathing, Toilet Transfers,Shower Transfers Progress Towards Goals Progressing Toward Goals Assessment Summary Pt low complexity and main barrier is decreased activity tolerance, decreased dynamic balance, and at this time would benefit from short rehab stay. Pt only able to tolerate walking to and from the sink versus at home has 40ft slope to be able to get into her house from the road. Pt would benefit from continued practice with FWW, to come from sit to stand especially from lower surfaces , work on dynamic balance so able to be modified independent for all ADl and IADL needs as prior pt lives alone. Goals Dressing Goal Independent Toileting Goal Independent Bathing Goal Independent Toilet Transfer Goal Independent Shower Transfer Goal Independent Patient/Caregiver Education Goal Caregiver Independent Assisting Patient Days to Meet Goals 5 Frequency of Treatment Frequency Of Treatment Once a Day Treatment Plan OT Treatment Plan ADL Training,Functional Mobility,Patient/Family Education,Discharge Planning Other Treatment Recommendations and Next shower Treatment Focus Discharge Recommendations OT Discharge Recommendations Home with Assistance,Home Health,SNF Rehab Other Discharge Recommendations short rehab stay versus home with assist and home health Home Equipment Needs grab bar for shower
--- NOTE | 2018-10-27 13:11 | OT.IP.TRT ---
Current Diagnoses Other specified fracture of unspecified pubis, initial encounter for closed fracture (10/25/18) Occupational Therapy Treatment Note M2 OT-IP Current Condition Start: 10/26/18 13:02 Freq: Status: Active Protocol: Document 10/27/18 12:25 [facility] (Rec: 10/27/18 13:07 [facility] [id number]) Occupational Therapy Current Condition Current Condition Evaluation Date 10/27/18 Treatment Diagnosis S/p fall -Non displaced right supeiror pubic ramus fx. Diagnosis Onset Date 10/25/18 Post Operative Precautions Other Precautions Per consult from Dr. Suarez, initially pt may only be able to tolerate toe touch weight bearing and then progress to weight bearing as tolerated. Weight Bearing Status Weight Bearing Status Weight Bear as Tolerated M3 OT- IP Subjective and Pain Start: 10/26/18 13:02 Freq: Status: Active Protocol: Document 10/27/18 12:25 [facility] (Rec: 10/27/18 13:07 [facility] [id number]) OT- Subjective Occupational Therapy Visit Type Type Initial Evaluation Visit Start Time 11:11 Visit Stop Time 11:55 Total Visit Minutes 44 Occupational Therapy Visit Comments Patient Comments Pt agreeable to get up for OT eval . Patient/Caregiver Goals Pt wanting to go to skilled rehab prior to going home. OT Pain Assessment Pain When Pain Assessed During Mobility Pain Present Pain Present Denied Pain M4 OT- IP ADL's Start: 10/26/18 13:02 Freq: Status: Active Protocol: Document 10/27/18 12:25 [facility] (Rec: 10/27/18 13:07 [facility] [id number]) OT MUG-Idhr-Qhgqvre General Evaluation Self-Feeding Ability Independent OT ADL-Grooming General Evaluation Grooming Ability Standby Assistance Areas Needing Assistance Retrieving/Set-up of Grooming Items Comments OT Grooming Comments Pt able to stand at sink with FWW and do all grooming independently after set-up. OT ADL-Oral Care General Eval Oral Care Ability Independent OT ADL-Dressing General Eval Lower Body Dressing Ability Standby Assistance Areas Needing Assistance Underpants/Brief,Socks Comments OT Dressing Comments Pt able to hayder /doff socks without adaptive equipment while sitting independently. Pt also able to thread her legs into the pants and stand to FWW and with close SBA able to hayder pants over her hips while letting go with both hands from the walker. OT ADL-Toileting Comments OT Toileting Comments Pt not having to use the toilet at this time. OT ADL-Bathing Comments OT Bathing Comments Pt too tired to do today and requesting to try with OT tomorrow AM. M5 OT- IP IADL's Start: 10/26/18 13:02 Freq: Status: Active Protocol: Document 10/27/18 12:25 [facility] (Rec: 10/27/18 13:07 [facility] [id number]) OT-Instrumental Activities of Daily Living Home Safety Awareness Ability to Problem Solve Emergency Able to Problem Solve Situations Home Safety Comments Pt able to answer all home safety situation with 100% accuracy. Medication Management Medication Management No Deficits Identified Money Management Money Management No Deficits Identified M6 OT- IP Functional Cognition Start: 10/26/18 13:02 Freq: Status: Active Protocol: Document 10/27/18 12:25 [facility] (Rec: 10/27/18 13:07 [facility] [id number]) Cognitive Factors Limiting Selfcare Function Cognitive Ability Level of Alertness Alert Patient Orientation Name,Age,Birthday,Month,Date, Year,Day of Week,Place, Situation Attention Span Ability Capable of Focused Attention, Capable of Sustained Attention Ability to Follow Commands Able to Follow One Step Commands Memory Description No Deficits Noted Safety Awareness Underestimates Need for Assistance Problem Solving Ability Needs Assist to Identify Solutions Cognitive Comments Cognitive Assessment Comments Pt needing vc for FWW safety as not used to using a walker. VC to safety awareness of how to come to stand and sitting, vc for hand placement and how much weight to try to put through RLE. OT- Vision and Hearing OT- Hearing Assessment OT- Hearing Assessment WFL OT- Vision Assessment Visual Acuity Glasses All The Time Vision Assessment Comments Pt does not have her glasses but able to read the clock accurately. M7 OT- IP Mobility and Balance Start: 10/26/18 13:02 Freq: Status: Active Protocol: Document 10/27/18 12:25 [facility] (Rec: 10/27/18 13:07 [facility] [id number]) OT- Bed Mobility Assessment Rolling Type of Rolling Roll to Left Supine to Sit Supine to Sit Assist Standby Assistance,1 Person Assistance OT-Transfer Assessment Sit to and From Stand Sit to and from Stand Contact Guard Assistance, Minimal Assistance Transfers Transfer Ability Standby Assistance,Contact Guard Assistance Technique Transfer Destination Bed,Chair Devices Transfer Assistive Devices Gait Belt,Front Wheeled Walker Comments Mobility Comments Pt initially VIOLET to help to stand as trying to stand up mainly on the left leg as trying not to put weight through RLE and unbalanced. After education to try to place some weight on the right side even just for balance improved to CGA and at the lianne of the session SBA to stand. OT- Balance Assessment Sitting Balance and Reactions Static Sitting Balance Ability Normal Dynamic Sitting Balance Ability Normal Standing Balance and Reactions Static Standing Balance Ability Good M8 OT- IP Objective Assessments Start: 10/26/18 13:02 Freq: Status: Active Protocol: Document 10/27/18 12:25 [facility] (Rec: 10/27/18 13:07 [facility] [id number]) OT Gross Range of Motion Upper Extremity Range of Motion Assessment Within Functional Limits OT Strength Upper Extremity Strength Assessment Within Functional Limits M9 OT- IP Assessment and Plan Start: 10/26/18 13:02 Freq: Status: Active Protocol: Document 10/27/18 12:25 [facility] (Rec: 10/27/18 13:07 [facility] [id number]) OT Summary Assessment and Plan Potential Rehabilitation Potential Excellent Analytic Complexity at Evaluation Low Summary OT Impairments Balance,Functional Mobility, Dressing,Toileting,Bathing, Toilet Transfers,Shower Transfers Progress Towards Goals Progressing Toward Goals Assessment Summary Pt low complexity and main barrier is decreased activity tolerance, decreased dynamic balance, and at this time would benefit from short rehab stay. Pt only able to tolerate walking to and from the sink versus at home has 40ft slope to be able to get into her house from the road. Pt would benefit from continued practice with FWW, to come from sit to stand especially from lower surfaces , work on dynamic balance so able to be modified independent for all ADl and IADL needs as prior pt lives alone. Goals Dressing Goal Independent Toileting Goal Independent Bathing Goal Independent Toilet Transfer Goal Independent Shower Transfer Goal Independent Patient/Caregiver Education Goal Caregiver Independent Assisting Patient Days to Meet Goals 5 Frequency of Treatment Frequency Of Treatment Once a Day Treatment Plan OT Treatment Plan ADL Training,Functional Mobility,Patient/Family Education,Discharge Planning Other Treatment Recommendations and Next shower Treatment Focus Discharge Recommendations OT Discharge Recommendations Home with Assistance,Home Health,SNF Rehab Other Discharge Recommendations short rehab stay versus home with assist and home health Home Equipment Needs grab bar for shower
--- NOTE | 2018-10-27 13:14 | OT.IP.EVAL ---
Current Diagnoses Other specified fracture of unspecified pubis, initial encounter for closed fracture (10/25/18) Past Medical History (Last Reviewed 10/26/18 @ 20:51 by Ty Suarez MD) Allergic rhinitis (Acute) Hypertension (Acute) Irritable bowel syndrome (Acute) Unspecified nasal polyp (Acute) Surgical History (Last Reviewed 10/26/18 @ 20:51 by Ty Suarez MD) History of appendectomy (Acute) History of cholecystectomy (Acute) History of tonsillectomy (Acute) Occupational Therapy Inpatient Evaluation/Re-Eval M1 PT/OT-IP Prior Functional Status Start: 10/25/18 17:31 Freq: NEEDED Status: Active Protocol: Document 10/27/18 12:25 [facility] (Rec: 10/27/18 13:07 [facility] [id number]) Medical Review Prior Functional Status Medical History Reviewed Yes Communication able to make needs known Mobility and Gait pt stated that she is modified independent with all mobilities and ambulation without AD but occasionally uses a SPC or a walking stick depending on her BPPV; stated that she also has a grocery trolley that she uses when needed for support Activities of Daily Living and IADL's Pt states prior completely independent with all ADl and IADl needs. Prior Functional Level (Other details) pt stated that she tripped and fell landing on her R hip during the night. initially was able to get back to bed but has difficulty getting up in the morning and has to call EMS and pt went to [facility]. stated that CT showed negative fracture but pt continues to have significant pain and [facility] stated to go to [facility] for MRI. Pt states does not drive and gets a cab if needed. pt states has 4O ft slope to walk down to the road to get a cab . Social History Household Members none Living Arrangements Apartment/Condo Number of Floors (Floors) One Floor Number of Stairs To Enter/Railing? 3 steps to enter with L rail ascending stated that she has a slope up to get into her condo pt lives at [place] Home Environment High Toilet,Walk in Shower Home Equipment Bedside Commode,Shower Seat with Backrest,Hand Held Shower Employment Status Retired Additional Social History Comment Pt states in guest bathroom can use edge of tub to help stand. Pt also looking into installing grab bars for the shower. M2 OT-IP Current Condition Start: 10/26/18 13:02 Freq: Status: Active Protocol: Document 10/27/18 12:25 [facility] (Rec: 10/27/18 13:07 [facility] [id number]) Occupational Therapy Current Condition Current Condition Evaluation Date 10/27/18 Treatment Diagnosis S/p fall -Non displaced right supeiror pubic ramus fx. Diagnosis Onset Date 10/25/18 Post Operative Precautions Other Precautions Per consult from Dr. Suarez, initially pt may only be able to tolerate toe touch weight bearing and then progress to weight bearing as tolerated. Weight Bearing Status Weight Bearing Status Weight Bear as Tolerated M3 OT- IP Subjective and Pain Start: 10/26/18 13:02 Freq: Status: Active Protocol: Document 10/27/18 12:25 [facility] (Rec: 10/27/18 13:07 [facility] [id number]) OT- Subjective Occupational Therapy Visit Type Type Initial Evaluation Visit Start Time 11:11 Visit Stop Time 11:55 Total Visit Minutes 44 Occupational Therapy Visit Comments Patient Comments Pt agreeable to get up for OT eval . Patient/Caregiver Goals Pt wanting to go to skilled rehab prior to going home. OT Pain Assessment Pain When Pain Assessed During Mobility Pain Present Pain Present Denied Pain M4 OT- IP ADL's Start: 10/26/18 13:02 Freq: Status: Active Protocol: Document 10/27/18 12:25 [facility] (Rec: 10/27/18 13:07 [facility] [id number]) OT WOP-Rycs-Fbbroeq General Evaluation Self-Feeding Ability Independent OT ADL-Grooming General Evaluation Grooming Ability Standby Assistance Areas Needing Assistance Retrieving/Set-up of Grooming Items Comments OT Grooming Comments Pt able to stand at sink with FWW and do all grooming independently after set-up. OT ADL-Oral Care General Eval Oral Care Ability Independent OT ADL-Dressing General Eval Lower Body Dressing Ability Standby Assistance Areas Needing Assistance Underpants/Brief,Socks Comments OT Dressing Comments Pt able to hayder /doff socks without adaptive equipment while sitting independently. Pt also able to thread her legs into the pants and stand to FWW and with close SBA able to hayder pants over her hips while letting go with both hands from the walker. OT ADL-Toileting Comments OT Toileting Comments Pt not having to use the toilet at this time. OT ADL-Bathing Comments OT Bathing Comments Pt too tired to do today and requesting to try with OT tomorrow AM. M5 OT- IP IADL's Start: 10/26/18 13:02 Freq: Status: Active Protocol: Document 10/27/18 12:25 [facility] (Rec: 10/27/18 13:07 [facility] [id number]) OT-Instrumental Activities of Daily Living Home Safety Awareness Ability to Problem Solve Emergency Able to Problem Solve Situations Home Safety Comments Pt able to answer all home safety situation with 100% accuracy. Medication Management Medication Management No Deficits Identified Money Management Money Management No Deficits Identified M6 OT- IP Functional Cognition Start: 10/26/18 13:02 Freq: Status: Active Protocol: Document 10/27/18 12:25 [facility] (Rec: 10/27/18 13:07 [facility] [id number]) Cognitive Factors Limiting Selfcare Function Cognitive Ability Level of Alertness Alert Patient Orientation Name,Age,Birthday,Month,Date, Year,Day of Week,Place, Situation Attention Span Ability Capable of Focused Attention, Capable of Sustained Attention Ability to Follow Commands Able to Follow One Step Commands Memory Description No Deficits Noted Safety Awareness Underestimates Need for Assistance Problem Solving Ability Needs Assist to Identify Solutions Cognitive Comments Cognitive Assessment Comments Pt needing vc for FWW safety as not used to using a walker. VC to safety awareness of how to come to stand and sitting, vc for hand placement, and cues to try to place weight on RLE. OT- Vision and Hearing OT- Hearing Assessment OT- Hearing Assessment WFL OT- Vision Assessment Visual Acuity Glasses All The Time Vision Assessment Comments Pt does not have her glasses but able to read the clock accurately. M7 OT- IP Mobility and Balance Start: 10/26/18 13:02 Freq: Status: Active Protocol: Document 10/27/18 12:25 [facility] (Rec: 10/27/18 13:07 [facility] [id number]) OT- Bed Mobility Assessment Rolling Type of Rolling Roll to Left Supine to Sit Supine to Sit Assist Standby Assistance,1 Person Assistance OT-Transfer Assessment Sit to and From Stand Sit to and from Stand Contact Guard Assistance, Minimal Assistance Transfers Transfer Ability Standby Assistance,Contact Guard Assistance Technique Transfer Destination Bed,Chair Devices Transfer Assistive Devices Gait Belt,Front Wheeled Walker Comments Mobility Comments Pt initially VIOLET to help to stand as trying to stand up mainly on the left leg as trying not to put weight through RLE and unbalanced. After education to try to place some weight on the right side even just for balance improved to CGA and at the lianne of the session SAB to stand. OT- Balance Assessment Sitting Balance and Reactions Static Sitting Balance Ability Normal Dynamic Sitting Balance Ability Normal Standing Balance and Reactions Static Standing Balance Ability Good M8 OT- IP Objective Assessments Start: 10/26/18 13:02 Freq: Status: Active Protocol: Document 10/27/18 12:25 [facility] (Rec: 10/27/18 13:07 [facility] [id number]) OT Gross Range of Motion Upper Extremity Range of Motion Assessment Within Functional Limits OT Strength Upper Extremity Strength Assessment Within Functional Limits M9 OT- IP Assessment and Plan Start: 10/26/18 13:02 Freq: Status: Active Protocol: Document 10/27/18 12:25 [facility] (Rec: 10/27/18 13:07 [facility] [id number]) OT Summary Assessment and Plan Potential Rehabilitation Potential Excellent Analytic Complexity at Evaluation Low Summary OT Impairments Balance,Functional Mobility, Dressing,Toileting,Bathing, Toilet Transfers,Shower Transfers Progress Towards Goals Progressing Toward Goals Assessment Summary Pt low complexity and main barrier is decreased activity tolerance, decreased dynamic balance, and at this time would benefit from short rehab stay. Pt only able to tolerate walking to and from the sink versus at home has 40ft slope to be able to get into her house from the road. Pt would benefit from continued practice with FWW, to come from sit to stand especially from lower surfaces , work on dynamic balance so able to be modified independent for all ADl and IADL needs as prior pt lives alone. Goals Dressing Goal Independent Toileting Goal Independent Bathing Goal Independent Toilet Transfer Goal Independent Shower Transfer Goal Independent Patient/Caregiver Education Goal Caregiver Independent Assisting Patient Days to Meet Goals 5 Frequency of Treatment Frequency Of Treatment Once a Day Treatment Plan OT Treatment Plan ADL Training,Functional Mobility,Patient/Family Education,Discharge Planning Other Treatment Recommendations and Next shower Treatment Focus Discharge Recommendations OT Discharge Recommendations Home with Assistance,Home Health,SNF Rehab Other Discharge Recommendations short rehab stay versus home with assist and home health Home Equipment Needs grab bar for shower
--- NOTE | 2018-10-27 15:26 | CM.DPC ---
DCP: continued: case discussed in Team Rounds this morning with care team members confirming that orthopedic surgeon did consult, no surgery was recommended and PT and OT were to see pt today. Met now with pt and her brother Jonnie, at bedside. Introduced self and role. Jonnie said he had done some research yesterday on [facility] facilities in the area, touring [facility] (no beds available until Tuesday) and [facility] (he noted not acceptable as they are currently doing a remodel and the resultant environmental impact this was having would not be acceptable to his sister. She readily agreed. PT and OT have been working with pt toward a home plan and she did well today. Further therapy sessions were planned for tomorrow. After much discussion (pt is under [facility] and [facility], at 1500 today, did call to say that if pt needed a snf setting [facility] expected to authorize this). She is updated on the current plan for home, likely tomorrow. Pt's brother will stay with pt until she is able to line up to friends to provide supportive assist. Dr. Roberson will see pt today and he is updated. P: follow up tomorrow. Last Hartman will be on tomorrow and will again review if this plan changes. Pt states she greatly appreciates the expertise of the therapists and feels confident in the home plan.
--- NOTE | 2018-10-27 16:20 | PT.IPTN ---
Current Diagnoses Other specified fracture of unspecified pubis, initial encounter for closed fracture (10/25/18) Physical Therapy Treatment Note M2 PT-IP Current Condition Start: 10/25/18 17:31 Freq: NEEDED Status: Active Protocol: Document 10/27/18 11:08 [facility] (Rec: 10/27/18 15:29 AB [id number]) Physical Therapy Current Condition Current Condition Evaluation Date 10/27/18 Treatment Diagnosis pubic ramus fx; difficulty in walking Onset Date 10/25/18 Weight Bearing Status Weight Bearing Status Weight Bear as Tolerated M3 PT-IP Subjective Start: 10/25/18 17:31 Freq: NEEDED Status: Active Protocol: Document 10/27/18 16:20 [facility] (Rec: 10/27/18 18:11 AB [id number]) Subjective Physical Therapy Visit Type Type Treatment Note Visit Start Time 16:20 Visit Stop Time 16:52 Total Visit Minutes 32 Number of CAKE [employer]INGER Visits 0 Physical Therapy Visit Comments Patient Comments pt agreeable to do PT Therapy Pain Assessment Pain Present Pain Present Denied Pain M4 PT-IP Mobility and Gait Start: 10/25/18 17:31 Freq: NEEDED Status: Active Protocol: Document 10/27/18 16:20 [facility] (Rec: 10/27/18 18:11 AB [id number]) PT-Bed Mobility Assessment Supine to Sit Supine to Sit Standby Assistance Sit to Supine Sit to Supine Standby Assistance PT-Transfer Assessment Sit to and From Stand Sit to and from Stand Standby Assistance Equipment Transfer Assistive Device Front Wheeled Walker Orthotic/Prosthetic Devices or Brace: No Transfers Transfer Destination Toilet Transfer Technique pt ambulated using FWW Transfer Ability Level of Assist Standby Assistance,1 Person Assistance,Use of Upper Extremities Gait Assessment Gait Gait Assistance Required: Standby Assistance,Contact Guard Assist Distance (Feet) 250 Able to Maintain Weight Bearing Status Yes During Gait Assistive Devices Assistive Device Gait Belt,Front Wheeled Walker Orthotic/Prosthetic Devices or Brace: No Gait Deviations General Gait Pattern Antalgic,Decreased Stride Length,Decreased Feet Clearance,Narrow Based Gait Factors Limiting Gait Function Factors Limiting Gait Function Decreased Activity Tolerance, Decreased Strength,Poor Balance,Poor Safety Awareness Comments Gait Comments pt ambulated using FWW SBA to CGA 150 ft + 250 ft. presents with antalgic gait but does not complain much of pain just towards the end of tx session . Stair Climbing Assessment Evaluation Level of Assist On Stairs Minimal Assistance,1 Person Assistance Devices Stair Climbing Assistive Devices Left Railing Technique/Endurance Stair Climbing Direction Ascend and Descend Stair Climbing Technique Step to Step Number of Steps Climbed 3 Stair Climbing Set # Repetitions (reps) 2 Comments Stair Climbing Comments pt holds on to L rail with B hands M5 PT-IP Objective Assessments Start: 10/25/18 17:31 Freq: NEEDED Status: Active Protocol: Document 10/27/18 11:08 AB (Rec: 10/27/18 15:29 AB [id number]) Orientation Orientation/Cognition Level of Alertness Alert Orientation Name,Age,Birthday,Month,Date, Year,Day of Week,Place, Situation Safety Awareness Decreased Safety Awareness Gross Range of Motion Lower Extremity ROM Assessment Within Functional Limits Strength Lower Extremity Strength Assessment Right Impaired Hip 3+/5 Knee 3+/5 Coordination Assessment Gross Coordination Gross Coordination WNL Sensation Assessment Sensation Gross Sensation WNL Muscle Tone Muscle Tone WNL Yes M6 PT-IP Treatment Start: 10/25/18 17:31 Freq: NEEDED Status: Active Protocol: Document 10/27/18 16:20 [facility] (Rec: 10/27/18 18:11 AB [id number]) Physical Therapy Treatment Education Education Provided Weight Bearing Status,Safety M7 PT-IP Assessment and Plan Start: 10/25/18 17:31 Freq: NEEDED Status: Active Protocol: Document 10/27/18 16:20 [facility] (Rec: 10/27/18 18:11 AB [id number]) PT Summary Assessment and Plan Potential Rehabilitation Potential Good Summary Impairments Pain,ROM,Strength,Balance, Cognition,Bed Mobility, Transfers,Gait,Activity Tolerance Progress Towards Goals Progressing Toward Goals Assessment Summary pt progressing well with mobility. pt required SBA to CGA with transfers and ambulation but requires min A with stair climbing. will conduct stair training again next tx session. pt stated that his brother will stay with her until her friend comes in to assist her. Goals Bed Mobility Goal Independent Transfer Goal Independent,Front Wheeled Walker Gait Goal Independent,Front Wheel Walker Gait Distance 150 Other Goals up/down 3 steps L rail ascending SBA Days to Meet Goals 10 Frequency of Treatment Frequency Of Treatment Once a Day Treatment Plan Physical Therapy Treatment Plan Bed Mobility Training,Transfer Training,Gait Training, Therapeutic Exercise,Balance Retraining,Discharge Planning, Hot or Cold Pack,Neuromuscular Re-ed,Coordination Retraining ,Manual Therapy Other Recommendations and Next Treatment ambulation, stair climbing Focus when appropriate Recommendations To Nursing Amount of Assist Needed 1 Person Assist Discharge Recommendations PT Discharge Recommendations Home with Assistance,Home Health
[2018-10-27] MEDS: ACETAMINOPHEN 325 MG TABLET 650 MG PO (18:29)
--- NOTE | 2018-10-27 19:48 | PM.PN.1 ---
Subjective Subjective Date Patient Seen: 10/27/18 Time Patient Seen: 18:00 Interval history: Patient was seen for follow-up today for a nondisplaced superior pubic ramus fracture. Patient was seen by Orthopedics who recommended non operative management and on her right side where the fracture is she can be weight-bearing as tolerated. She worked with Physical to therapy today and showed marked improvement, the hope is that tomorrow she will be stable for discharge home with adequate pain control. Her biggest pains come with abduction and weight-bearing, flexion and extension are tolerable. Exam Vital Signs (past 8 hours): - 10/27/18 14:00 10/27/18 14:22 10/27/18 15:32 Temperature 98.1 F 97.8 F Pulse Rate 85 73 Respiratory Rate 18 16 Blood Pressure 142/79 H 150/89 H Pulse Oximetry 97 97 98 Oxygen Delivery Method Room Air Oxygen Flow Rate 0 Narrative Exam Narrative: GENERAL APPEARANCE: Well developed, well nourished, in no acute distress. SKIN: Inspection of the skin reveals no rashes, ulcerations or petechiae. HEENT: The sclerae were anicteric and conjunctivae were pink and moist. Extraocular movements were intact and pupils were equal, round with normal accommodation. External inspection of the ears and nose showed no scars, lesions, or masses. Lips, teeth, and gums showed normal mucosa. The oral mucosa, hard and soft palate, tongue and posterior pharynx were unremarkable. NECK: Supple and symmetric. There was no thyroid enlargement, and no tenderness, or masses were felt. CHEST: Normal AP diameter and normal contour without any kyphoscoliosis. LUNGS: Auscultation of the lungs revealed no wheezes, rhonchi, or rales. CARDIOVASCULAR: There was a regular rate and rhythm without any murmurs, gallops, rubs. Peripheral pulses were 2+ and symmetric. ABDOMEN: Soft and nontender with normal bowel sounds. No ascites was noted. MUSCULOSKELETAL: R hip tenderness. Muscle strength and tone were normal. Able to flex at the hip and rest foot on bed. EXTREMITIES: No cyanosis, clubbing or edema. NEUROLOGIC: Alert and oriented x 3. Normal affect. Gait was normal. Strength is +5/5 in the Upper Extremities and Lower Extremities Bilaterally. Sensation to touch was normal. Objective Labs Result Diagrams: 10/25/18 11:30 10/25/18 11:30 Assessment & Plan Assessment & Plan narrative: 1. Right acetabular suprapubic nondisplaced fracture, nontraumatic following a fall. Suspect this is secondary to underlying osteoporosis. Orthopedic surgery consult appreciated and are proceeding with non operative management. She showed significant improvement with physical therapy today and the hope is for discharge home tomorrow. - continue PT/OT - continue pain management - possible discharge home tomorrow after PT/OT therapies pending their final recommendations. 2. Hypertension, continue [place] Dispo: likely discharge home tomorrow, if not will work for rehab given patient's [employer] insurance DVT: Lovenox Code: Fulll Quality VTE Deep Vein Thrombosis/Pulmonary Embolism Present on Admission: No
[2018-10-28 00:35] VITALS: BP 150/96; PULSE 92; RESP 17; TEMP 36.7; O2SAT 94
[2018-10-28 05:00] VITALS: BP 144/86; PULSE 81; RESP 17; TEMP 36.8; O2SAT 96
[2018-10-28 08:00] VITALS: BP 146/89; PULSE 78; RESP 16; TEMP 36.7; O2SAT 98
[2018-10-28 08:15] VITALS: O2SAT 98
[2018-10-28] MEDS: ENOXAPARIN 40 MG/0.4 ML SYRINGE SUBCUT (08:25)
[2018-10-28] MEDS: LOSARTAN 25 MG TABLET PO (08:26)
--- NOTE | 2018-10-28 08:37 | PC.NURSE ---
Addendum entered by Leta Quintero R.N. 10/28/18 12:17: Pt is going to Contact her PCP for referral to OP PT. Pt left unit at 1213 with OT and PT for Therapy session and to assist her into her brothers vehicle for discharge. Pt's brother Jonnie present to drive pt home. Addendum entered by Leta Quintero R.N. 10/28/18 12:02: PRN Tylenol given prior to PTR session and pt discharging home. Discharge Summary packet reviewed with pt, no questions at this time except Asking about referral to OP PT. Pt states has all belongings. Pt also given a copy of [employer] pass to [place] [address] to [place]. Original Note: Day Shift- Pt A&OX4, able to make needs known using call light. Bed alarm on, high fall risk precautions in place. Pt reports pain to right hip/groin area with movement/walking, pressure on RLE. Aware PRN meds available. RLE CMS+. RLE edema 1+ puffy to above ankle to hip compared to LLE. Right hip has small bruise noted that is light purple with yellow and green bruising coloring. Plan for Shower at 1000 with OT, Stair training with PT. Pt wants to go home. Pt's Brother Jonnie staying with pt until another friend arrives at pt's home tomorrow (Sunday 10/29) to assist pt and then pt has a 2nd friend arriving to assist her. No further voiced concerns.
--- NOTE | 2018-10-28 11:07 | PM.PN.1 ---
Subjective Subjective Date Patient Seen: 10/28/18 Time Patient Seen: 11:07 Interval history: Patient is a 73-year-old woman who was admitted to the hospital with right groin pain after she fell on Tuesday. An MRI scan in the hospital revealed a nondisplaced fracture of the right superior pubic ramus just adjacent to the acetabulum. She was evaluated by Dr. Suarez on 03/29 and will be treated non operatively. She is able to progress to weight-bearing as tolerated. She may need to be toe-touch weight-bearing at first due to pain. Patient's pain is well controlled with Tylenol. As per internal medicine documentation, she will likely discharge home with support from her brother (Jonnie Guerra). She denies any fever, chills, nausea, vomiting, chest pain, shortness of breath, or calf pain. Exam Vital Signs (past 8 hours): - 10/28/18 05:00 10/28/18 08:00 10/28/18 08:15 Temperature 98.2 F 98.0 F Pulse Rate 81 78 Respiratory Rate 17 16 Blood Pressure 144/86 H 146/89 H Pulse Oximetry 96 98 98 Oxygen Delivery Method Room Air Oxygen Flow Rate 0 Narrative Exam Narrative: 73 y/o female is laying comfortably in bed, in no apparent distress. A&Ox3. Calves are soft, compressible, nontender bilaterally. Pulses are symmetrical in lower extremities. Motor strength 5/5 in lower extremities. There is a slight bruise over the lateral right hip but minimal tenderness. No open wounds or lesions. Sensation is intact to light touch in lower. Objective Labs Result Diagrams: 10/25/18 11:30 10/25/18 11:30 Assessment & Plan Assessment & Plan narrative: This fracture will be treated non-operatively. We will continue Dr. Suarez plan. She may be full weight-bearing on the left side which should be relatively comfortable. She may progress weight-bearing as tolerated on the right side. This might initially be fairly painful so she may just be toe-touch weight-bearing. However, as her symptoms improve she can progress more and more weight onto the right side. As per internal medicine's documentation, patient will likely be discharged home pending PT/OT. Quality VTE Deep Vein Thrombosis/Pulmonary Embolism Present on Admission: No
[2018-10-28] MEDS: ACETAMINOPHEN 325 MG TABLET 650 MG PO (11:49)
--- NOTE | 2018-10-28 12:35 | PT.IPTN ---
Current Diagnoses Other specified fracture of unspecified pubis, initial encounter for closed fracture (10/25/18) Physical Therapy Treatment Note M2 PT-IP Current Condition Start: 10/25/18 17:31 Freq: NEEDED Status: Active Protocol: Document 10/27/18 11:08 AB (Rec: 10/27/18 15:29 AB [id number]) Physical Therapy Current Condition Current Condition Evaluation Date 10/27/18 Treatment Diagnosis pubic ramus fx; difficulty in walking Onset Date 10/25/18 Weight Bearing Status Weight Bearing Status Weight Bear as Tolerated M3 PT-IP Subjective Start: 10/25/18 17:31 Freq: NEEDED Status: Active Protocol: Document 10/28/18 12:27 GGD (Rec: 10/28/18 12:35 GGD [id number]) Subjective Physical Therapy Visit Type Type Treatment Note Visit Start Time 12:00 Visit Stop Time 12:23 Total Visit Minutes 23 Number of C.O.D. AUDIT CLERK Visits 1 Physical Therapy Visit Comments Patient Comments Pt states she ready to go home . M4 PT-IP Mobility and Gait Start: 10/25/18 17:31 Freq: NEEDED Status: Active Protocol: Document 10/28/18 12:27 GGD (Rec: 10/28/18 12:35 GGD [id number]) PT-Bed Mobility Assessment Supine to Sit Supine to Sit Independent PT-Transfer Assessment Sit to and From Stand Sit to and from Stand Standby Assistance Equipment Transfer Assistive Device Gait Belt,Front Wheeled Walker Orthotic/Prosthetic Devices or Brace: No Transfers Transfer Destination Wheelchair,Car Transfer Technique pt ambulated using FWW Transfer Ability Level of Assist Minimal Assistance,1 Person Assistance,Use of Upper Extremities Comments Mobility Comments Pt transfer to car up 3 steps backwards with FWW and CGA for first step, then left rail and right hand hold assist with min a for two steps. Gait Assessment Gait Gait Assistance Required: Standby Assistance Distance (Feet) 20 Able to Maintain Weight Bearing Status Yes During Gait Assistive Devices Assistive Device Gait Belt,Front Wheeled Walker Orthotic/Prosthetic Devices or Brace: No Gait Deviations General Gait Pattern Antalgic,Decreased Stride Length,Decreased Feet Clearance,Narrow Based Gait Factors Limiting Gait Function Factors Limiting Gait Function Decreased Activity Tolerance, Decreased Strength,Poor Balance,Poor Safety Awareness M5 PT-IP Objective Assessments Start: 10/25/18 17:31 Freq: NEEDED Status: Active Protocol: Document 10/27/18 11:08 AB (Rec: 10/27/18 15:29 AB [id number]) Orientation Orientation/Cognition Level of Alertness Alert Orientation Name,Age,Birthday,Month,Date, Year,Day of Week,Place, Situation Safety Awareness Decreased Safety Awareness Gross Range of Motion Lower Extremity ROM Assessment Within Functional Limits Strength Lower Extremity Strength Assessment Right Impaired Hip 3+/5 Knee 3+/5 Coordination Assessment Gross Coordination Gross Coordination WNL Sensation Assessment Sensation Gross Sensation WNL Muscle Tone Muscle Tone WNL Yes M6 PT-IP Treatment Start: 10/25/18 17:31 Freq: NEEDED Status: Active Protocol: Document 10/27/18 16:20 AB (Rec: 10/27/18 18:11 AB [id number]) Physical Therapy Treatment Education Education Provided Weight Bearing Status,Safety M7 PT-IP Assessment and Plan Start: 10/25/18 17:31 Freq: NEEDED Status: Active Protocol: Document 10/28/18 12:27 GGD (Rec: 10/28/18 12:35 GGD [id number]) PT Summary Assessment and Plan Summary Assessment Summary Pt improving with mobility. She was safe with bed mobility and transfers. Pt need min A for step in to car. Pt safe for home D/C when medically stable. Frequency of Treatment Frequency Of Treatment Once a Day Treatment Plan Physical Therapy Treatment Plan Bed Mobility Training,Transfer Training,Gait Training, Therapeutic Exercise,Balance Retraining,Discharge Planning, Hot or Cold Pack,Neuromuscular Re-ed,Coordination Retraining ,Manual Therapy Recommendations To Nursing Amount of Assist Needed 1 Person Assist Discharge Recommendations PT Discharge Recommendations Home with Assistance
--- NOTE | 2018-10-28 13:01 | OT.IP.TRT ---
Current Diagnoses Other specified fracture of unspecified pubis, initial encounter for closed fracture (10/25/18) Occupational Therapy Treatment Note M2 OT-IP Current Condition Start: 10/26/18 13:02 Freq: Status: Active Protocol: Document 10/27/18 12:25 CCC (Rec: 10/27/18 13:07 CCC [email or web address]) Occupational Therapy Current Condition Current Condition Evaluation Date 10/27/18 Treatment Diagnosis S/p fall -Non displaced right supeiror pubic ramus fx. Diagnosis Onset Date 10/25/18 Post Operative Precautions Other Precautions Per consult from Dr. Suarez, initially pt may only be able to tolerate toe touch weight bearing and then progress to weight bearing as tolerated. Weight Bearing Status Weight Bearing Status Weight Bear as Tolerated M3 OT- IP Subjective and Pain Start: 10/26/18 13:02 Freq: Status: Active Protocol: Document 10/28/18 12:29 CGR (Rec: 10/28/18 12:59 CGR [id number]) OT- Subjective Occupational Therapy Visit Type Type Treatment Note Visit Start Time 09:50 Visit Stop Time 10:39 Total Visit Minutes 72 Notes 49 minutes for first treatment [id number] for second treatment 23 minutes Total of 72 minutes OT Pain Assessment Pain When Pain Assessed At Rest Pain Present Pain Present Denied Pain M4 OT- IP ADL's Start: 10/26/18 13:02 Freq: Status: Active Protocol: Document 10/28/18 12:29 CGR (Rec: 10/28/18 12:59 CGR [id number]) OT ADL-Grooming General Evaluation Grooming Ability Standby Assistance Areas Needing Assistance Combing/Brushing Hair Comments OT Grooming Comments standing at sink for brushing hair. OT ADL-Oral Care Comments Oral Care Comments Declined, already performed this AM. OT ADL-Dressing General Eval Upper Body Dressing Ability Standby Assistance Lower Body Dressing Ability Standby Assistance Areas Needing Assistance Retrieving/Set-up of Clothing, Pull-Over Shirt,Underpants/ Brief,Pants/Shorts,Socks,Shoes OT ADL-Toileting General Evaluation Toileting Ability Independent Comments OT Toileting Comments urinated seated on toilet OT ADL-Bathing Bathing Type Bathing Type Shower General Evaluation Bathing Ability Standby Assistance Devices Bathing Equipment Hand Held Shower Sprayer Comments OT Bathing Comments Pt performed shower seated on BSC in shower. M5 OT- IP IADL's Start: 10/26/18 13:02 Freq: Status: Active Protocol: Document 10/27/18 12:25 [facility] (Rec: 10/27/18 13:07 [facility] [id number]) OT-Instrumental Activities of Daily Living Home Safety Awareness Ability to Problem Solve Emergency Able to Problem Solve Situations Home Safety Comments Pt able to answer all home safety situation with 100% accuracy. Medication Management Medication Management No Deficits Identified Money Management Money Management No Deficits Identified M6 OT- IP Functional Cognition Start: 10/26/18 13:02 Freq: Status: Active Protocol: Document 10/27/18 12:25 [facility] (Rec: 10/27/18 13:07 [facility] [id number]) Cognitive Factors Limiting Selfcare Function Cognitive Ability Level of Alertness Alert Patient Orientation Name,Age,Birthday,Month,Date, Year,Day of Week,Place, Situation Attention Span Ability Capable of Focused Attention, Capable of Sustained Attention Ability to Follow Commands Able to Follow One Step Commands Memory Description No Deficits Noted Safety Awareness Underestimates Need for Assistance Problem Solving Ability Needs Assist to Identify Solutions Cognitive Comments Cognitive Assessment Comments Pt needing vc for FWW safety as not used to using a walker. VC to safety awareness of how to come to stand and sitting. OT- Vision and Hearing OT- Hearing Assessment OT- Hearing Assessment WFL OT- Vision Assessment Visual Acuity Glasses All The Time Vision Assessment Comments Pt does not have her glasses but able to read the clock accurately. M7 OT- IP Mobility and Balance Start: 10/26/18 13:02 Freq: Status: Active Protocol: Document 10/28/18 12:29 CGR (Rec: 10/28/18 12:59 CGR [id number]) OT- Bed Mobility Assessment Supine to Sit Supine to Sit Assist Independent Sit to Supine Sit to Supine Assist Independent Scooting Scooting to Edge of Bed Independent Scooting Up and Down in Bed Independent OT-Transfer Assessment Sit to and From Stand Sit to and from Stand Standby Assistance Transfers Transfer Ability Standby Assistance Technique Transfer Destination Bed,Shower Stall,Toilet Transfer Technique Stand Step Pivot Devices Transfer Assistive Devices Gait Belt,Front Wheeled Walker OT- Gait Assessment Gait Gait Assistance Required: Standby Assistance Assistive Devices Assistive Device Gait Belt,Front Wheeled Walker OT- Balance Assessment Sitting Balance and Reactions Static Sitting Balance Ability Good Dynamic Sitting Balance Ability Good Standing Balance and Reactions Static Standing Balance Ability Good Dynamic Standing Balance Ability Fair M8 OT- IP Objective Assessments Start: 10/26/18 13:02 Freq: Status: Active Protocol: Document 10/27/18 12:25 CCC (Rec: 10/27/18 13:07 CCC [email or web address]) OT Gross Range of Motion Upper Extremity Range of Motion Assessment Within Functional Limits OT Strength Upper Extremity Strength Assessment Within Functional Limits M9 OT- IP Assessment and Plan Start: 10/26/18 13:02 Freq: Status: Active Protocol: Document 10/28/18 12:29 CGR (Rec: 10/28/18 12:59 CGR [id number]) OT Summary Assessment and Plan Potential Rehabilitation Potential Excellent Summary OT Impairments Balance,Functional Mobility, Dressing,Toileting,Bathing, Toilet Transfers,Shower Transfers Progress Towards Goals Progressing Toward Goals Assessment Summary Pt tolerated session well. First session pt particiapted in a shower and dressing with grossly SBA for all activities. Second session was to assist pt into a camper van for transport back to her home. 3 steps into the campervan with a 2 person assist with CGA to min a. Pt camille to progress well at home with family and friends support. Goals Dressing Goal Independent Toileting Goal Independent Bathing Goal Independent Toilet Transfer Goal Independent Shower Transfer Goal Independent Patient/Caregiver Education Goal Caregiver Independent Assisting Patient Days to Meet Goals 5 Frequency of Treatment Frequency Of Treatment Discharge Treatment Plan OT Treatment Plan ADL Training,Functional Mobility,Patient/Family Education,Discharge Planning Other Treatment Recommendations and Next shower Treatment Focus Discharge Recommendations OT Discharge Recommendations Home with Assistance,Home Health,SNF Rehab Other Discharge Recommendations short rehab stay versus home with assist and home health Home Equipment Needs grab bar for shower
--- NOTE | 2018-10-28 15:08 | CM.DPC ---
DCP: continued: discussed case in Team Rounds. Dr. Roberson stated pt was ready for the d/c to home today and she and her brother wanted to be out in time to catch the [place] ferry to [place]. Pt saw PT and OT again for another session this morning. MUSA Watson in Rounds noted that pt did well and was cleared for her preferred home plan as per plan discussed yesterday with this DCPlanner.
--- NOTE | 2018-10-28 16:00 | PM.DS.1 ---
History of Present Illness History of Present Illness Date Patient Seen: 10/28/18 Time Patient Seen: 07:50 Chief complaint: broken hip or crack hip fell yesturday Narrative: As per Sarah Beth Sequeira MD: The patient is a 73-year-old female with a history of hypertension, allergic rhinitis, irritable bowel syndrome who was in her usual state of health until yesterday at 4:00 a.m. when she attempted to go to the restroom and tripped over her sweat pants falling on her right hip. She reports since that time she has had pain when she attempts to bear weight on the right hip. The pain is a deep pain in the right groin. When she is at rest or not exerting weight she does not have any pain although it is a dull pain when it does occur. She was seen by her PCP on Tuesday, Vonnie Thayer. She had an x-ray of the hip which was negative for fracture. Patient also had a CT scan of the hip which was negative for fracture. Because she continues to have inability to ambulate without significant pain she was sent to [facility] for further evaluation and potential MRI study. Patient was seen by physical therapy in the emergency department. She was unable to ambulate independently. She is admitted to the hospital for further evaluation. Patient denies any headache blurred vision or double vision. She did not hit her head. She had no shortness of breath or chest pain. She denies any nausea vomiting or diarrhea. No fever chills, no weight loss. The patient lives alone in a condominium on Tuesday. She has 4 steps that she must step up on in order to enter her home. Patient is admitted to the hospital for further evaluation of continued right groin pain following a fall. Discharge Providers Provider Date of admission: 10/25/18 15:08 Discharge Date: 10/28/18 Primary care physician: Vonnie Coronel MD Consults: 10/25/18 11:20 Consult to Physical Therapy Evaluate & Treat Comment: fall, cannot weight bear Physician Instructions: Evaluate and Treat 10/25/18 18:00 Consult to Occupational Therapy Evaluate & Treat Comment: Physician Instructions: Evaluate and treat Consult to Physical Therapy Evaluate & Treat Comment: Physician Instructions: Evaluate and Treat 10/26/18 11:44 Consult to Physician Routine Comment: Consulting Provider: Ty Suarez Reason for consultation: right hip fracture Has provider been notified: Yes 10/27/18 07:44 Consult to Occupational Therapy Evaluate & Treat Comment: Physician Instructions: Evaluate and treat Consult to Physical Therapy Evaluate & Treat Comment: Physician Instructions: Evaluate and Treat Discharge provider: Severino Roberson DO Summary Hospital Course Discharge Diagnosis: 1. Right acetabular suprapubic nondisplaced fracture, nontraumatic, likely pathologic 2. Hypertension Hospital Course: Nola Montes is a 73-year-old female with hypertension who was admitted to Medicine. 1. Right acetabular suprapubic nondisplaced fracture, nontraumatic following a fall. Suspect this is secondary to underlying osteoporosis. Orthopedic surgery consult appreciated and are proceeding with non operative management. She showed significant improvement with physical therapy and was able to be discharged home. Her pain was controlled with minimal, non opiate therapies and she should continue Tylenol at home. - outpatient orthopedic follow up. 2. Hypertension, chronic. continue Cozaar. Patients blood pressures were controlled as an inpatient. Exam Vital Signs (past 8 hours): - 10/28/18 08:15 Pulse Oximetry 98 Oxygen Delivery Method Room Air Oxygen Flow Rate 0 Narrative Exam Narrative: GENERAL APPEARANCE: Well developed, well nourished, in no acute distress. SKIN: Inspection of the skin reveals no rashes, ulcerations or petechiae. HEENT: The sclerae were anicteric and conjunctivae were pink and moist. Extraocular movements were intact and pupils were equal, round with normal accommodation. External inspection of the ears and nose showed no scars, lesions, or masses. Lips, teeth, and gums showed normal mucosa. The oral mucosa, hard and soft palate, tongue and posterior pharynx were unremarkable. NECK: Supple and symmetric. There was no thyroid enlargement, and no tenderness, or masses were felt. CHEST: Normal AP diameter and normal contour without any kyphoscoliosis. LUNGS: Auscultation of the lungs revealed no wheezes, rhonchi, or rales. CARDIOVASCULAR: There was a regular rate and rhythm without any murmurs, gallops, rubs. Peripheral pulses were 2+ and symmetric. ABDOMEN: Soft and nontender with normal bowel sounds. No ascites was noted. MUSCULOSKELETAL: R hip tenderness. Muscle strength and tone were normal. Able to flex at the hip and rest foot on bed. EXTREMITIES: No cyanosis, clubbing or edema. NEUROLOGIC: Alert and oriented x 3. Normal affect. Strength is +5/5 in the Upper Extremities and Lower Extremities Bilaterally. Sensation to touch was normal. Objective Labs Result Diagrams: 10/25/18 11:30 10/25/18 11:30 Discharge Plan Discharge Plan Patient Disposition: Home Discharge Med Rec/Prescriptions Prescriptions: New acetaminophen 325 mg Tablet 650 mg PO Q6HR PRN (Reason: As Needed For Fever/Mild Pain) 7 Days RF: 0 Continued TEARS ARTIFICIAL OPHTH - (Lubritears / Tears Naturale) OPHTH PRN Qty: 0 RF: 0 losartan 25 mg tablet 25 mg PO DAILY RF: 0 Follow up/Referrals: Vonnie Coronel MD [Primary Care Provider] - (Please call office on Tuesday to make follow up appointment for in 2 weeks.) Visit Report/Discharge Packet Instructions: DI for Pelvic Fracture, DI for Muscle Strain, How to Prevent Falls Discharge Data Primary Care Provider: Vonnie Coronel Attending Provider: Piedad Sequeira Admit Date/Time: 10/25/18 15:08 Discharges patient from system. Discharge Date/Time: 10/28/18 12:13 Quality VTE Deep Vein Thrombosis/Pulmonary Embolism Present on Admission: No
== END 2018-10-28 12:13 | disposition home or self-care (01) ==
LOC: ED 11:23 → AC 15:09
PROVIDERS: Admitting Provider Internal Medicine; Emergency Provider Emergency Medicine; PCP Family Medicine; Visit Provider Internal Medicine
DX: S32.599A Other specified fracture of unspecified pubis, initial encounter for closed fracture (principal); M25.551 Pain in right hip; W01.0XXA Fall on same level from slipping, tripping and stumbling without subsequent striking against object, initial encounter; I10 Essential (primary) hypertension; K58.9 Irritable bowel syndrome, unspecified
CPT/HCPCS: 36591; 73723; 80048; 85025; 96372; 97116; 97161; 97162; 97530; 97535; 99283; 99284; G0378; A9579; J1650